=== PATIENT | female | born 1945 | race Caucasian/White ===

== ENCOUNTER 2018-02-05 10:20 | Inpatient (IN) | payer MEDICARE, BC ==
--- NOTE | 2018-02-05 11:00 | EDM.PDOC ---
<Joanne Chambers - Last Filed: 02/05/18 12:40> ED HPI GENERAL MEDICAL PROBLEM - General Chief Complaint: Lower Extremity Injury/Pain Stated Complaint: FELL/INJURIES Time Seen by Provider: 02/05/18 10:41 Source of Information: Reports: Patient History Limitations: Reports: No Limitations - History of Present Illness INITIAL COMMENTS - FREE TEXT/NARRATIVE: Stella is a 72-year-old woman with history of CVA, HTN, hypothyroidism, peripheral neuropathy, and renal failure s/p renal transplant who complains of right leg pain for the past 6 days. Seven days ago, she reports her knee "gave out" and she fell down three steps. The next day, she started having right throbbing lower leg pain, swelling, and redness. The pain is always present, worse with movement and better with a hot or cold pack. Stella denies fever/ chills,chest pain, shortness of breath, pain with breathing, neck/back injury, hip/knee/ankle pain, and alteration in sensation. She does take gabapentin for chronic nerve pain in her feet. Stella reports having had a stroke in ~2010, from which she has fully recovered. She states she was unable to talk or walk after her stroke. According to pt, no cause for the stroke was identified. She denies heart disease, valvular heart disease, peripheral vascular disease, coagulation disorder, or previous blood clots. She denies being a current smoker, and reports smoking about 55 years ago, for a total of about one year. She denies being on hormone replacement therapy. She does not drink alcohol. She takes 81mg ASA every day. Stella had a kidney transplant in 2014 due to bilateral renal failure. She is currently taking Cellcept and prednisone for anti-rejection therapy. Her workers' compensation hearings officer is Dr. Quigley. She has had her knees replaced bilaterally, with a left knee replacement in 2004 and a right knee replacement in May 2017. Onset: Gradual Duration: Day(s): (6) Location: Reports: Lower Extremity, Right Improves with: Reports: Cold Therapy, Heat Therapy, Immobilization, Rest Worsens with: Reports: Movement Treatments CLIPPING MARKER: Reports: Acetaminophen, Aspirin, Cold Therapy Right Lower Leg Pain Score (Numeric/FACES): 5 - Related Data Allergies Allergy/AdvReac Type Severity Reaction Status Date / Time adhesive tape Allergy Rash Verified 02/05/18 10:37 Home Meds: Home Meds Allopurinol [Zyloprim] 100 mg PO DAILY 02/05/18 [History] Gabapentin [Neurontin] 300 mg PO BID 02/05/18 [History] Levothyroxine [Synthroid] 50 mcg PO ACBREAKFAST 02/05/18 [History] Lidocaine [Lidocaine Pain Relief] 1 each TP DAILY 02/05/18 [History] Metoprolol Tartrate [Lopressor] 25 mg PO Q12HR 02/05/18 [History] Mycophenolate Mofetil [Cellcept] 500 mg PO BID 02/05/18 [History] atorvaSTATin [Lipitor] 20 mg PO BEDTIME 02/05/18 [History] cycloSPORINE [Cyclosporine] 75 mg PO BID 02/05/18 [History] predniSONE [Prednisone] 5 mg PO DAILY 02/05/18 [History] Review of Systems - Review of Systems Constitutional: Denies: Chills, Fever, Weakness Mouth/Throat: Reports: No Symptoms Respiratory: Denies: Shortness of Breath, Pleuritic Chest Pain, Cough Cardiovascular: Reports: Edema. Denies: Chest Pain, Lightheadedness, Palpitations GI/Abdominal: Reports: No Symptoms Musculoskeletal: Reports: Leg Pain (right leg, as per HPI) Skin: Reports: Erythema Neurological: Reports: No Symptoms. Denies: Numbness, Tingling ED EXAM, GENERAL - Physical Exam Free Text/Narrative:: Resting comfortably in bed. Oxygen saturation 97% on room air. Exam Limited By: No Limitations General Appearance: Alert, Mild Distress Throat/Mouth: Normal Inspection Head: Atraumatic Neck: Normal Inspection, Non-Tender, Full Range of Motion Respiratory/Chest: No Respiratory Distress, Normal Breath Sounds, Chest Non- Tender Cardiovascular: Normal Peripheral Pulses, Regular Rate, Rhythm, No Murmur Peripheral Pulses: 2+: Radial (L), Radial (R), Popliteal (L), Popliteal (R), Posterior Tibial (L), Posterior Tibial (R), Dorsalis Pedis (L), Dorsalis Pedis ( R) GI/Abdominal: Soft, Non-Tender Back Exam: Normal Inspection, Full Range of Motion. No: Paraspinal Tenderness, Vertebral Tenderness Extremities: Normal Range of Motion, Pedal Edema (3+ pitting pedal edema on dorsum of right foot. 2+ pitting edema of legs, bilaterally, with right greater than left. Circumference of right calf is approximately 50% greater than left calf. ), Increased Warmth, Redness, Other (right leg is swollen, erythematous, shiny, and tender circumferentially from mid-calf to ankle) Neurological: Alert, Oriented, Normal Cognition, No Motor/Sensory Deficits Psychiatric: Normal Affect, Normal Mood Skin Exam: Erythema, Increased Warmth, Rash (stasis dermatitis of right leg), Wound/Incision (small scab present on right anterior leg) Course - Vital Signs Last Recorded V/S: Last Vital Signs Temp 98.6 F 02/05/18 10:34 Pulse 63 02/05/18 10:34 Resp 16 02/05/18 10:34 BP 172/76 H 02/05/18 10:34 Pulse Ox 97 02/05/18 10:34 - Orders/Labs/Meds Orders: Active Orders 24 hr Category Date Time Status Tibia Fibula Rt [CR] Stat Exams 02/05/18 11:27 Taken Labs: Laboratory Tests 02/05/18 02/05/18 02/05/18 Range/Units 11:40 11:40 11:40 WBC 9.59 (3.98-10.04) K/mm3 RBC 3.77 L (3.98-5.22) M/mm3 Hgb 11.6 (11.2-15.7) gm/L Hct 37.4 (34.1-44.9) % MCV 99.2 H (79.4-94.8) fl MCH 30.8 (25.6-32.2) pg MCHC 31.0 L (32.2-35.5) g/dl RDW Std Deviation 51.9 H (36.4-46.3) fL Plt Count 242 (182-369) K/mm3 MPV 9.8 (9.4-12.3) fl Neutrophils % (Manual) 84 H (40-60) % Band Neutrophils % 0 (0-10) % Lymphocytes % (Manual) 14 L (20-40) % Atypical Lymphs % 0 % Monocytes % (Manual) 2 (2-10) % Eosinophils % (Manual) 0 L (0.7-5.8) % Basophils % (Manual) 0 L (0.1-1.2) Platelet Estimate Adequate RBC Morph Comment Normal Sodium 140 (136-145) mEq/L Potassium 5.2 H (3.5-5.1) mEq/L Chloride 108 H (98-107) mEq/L Carbon Dioxide 24 (21-32) mEq/L Anion Gap 13.2 (5-15) BUN 36 H (7-18) mg/dL Creatinine 1.2 H (0.55-1.02) mg/dL Est Cr Clr Drug Dosing 31.04 mL/min Estimated GFR (MDRD) 44 (>60) mL/min BUN/Creatinine Ratio 30.0 H (14-18) Glucose 135 H (83-115) mg/dL Calcium 10.6 H (8.5-10.1) mg/dL Total Bilirubin 1.0 (0.2-1.0) mg/dL AST 29 (15-37) U/L ALT 41 (14-59) U/L Alkaline Phosphatase 157 H (46-116) U/L C-Reactive Protein 4.9 H* (<1.0) mg/dL Total Protein 7.1 (6.4-8.2) g/dl Albumin 3.1 L (3.4-5.0) g/dl Globulin 4.0 gm/dL Albumin/Globulin Ratio 0.8 L (1-2) Meds: Medications Discontinued Medications Generic Name Dose Route Start Last Admin Trade Name Suman PRN Reason Stop Dose Admin Ceftriaxone Sodium 1 gm/ 100 mls @ 200 mls/hr 02/05/18 15:31 02/05/18 15:49 Sodium Chloride IV 02/05/18 16:00 200 mls/hr ONETIME ONE Administration Departure - Departure Disposition: Refer to Observation Clinical Impression: Cellulitis Qualifiers: Site of cellulitis: extremity Site of cellulitis of extremity: lower extremity Laterality: right Qualified Code(s): L03.115 - Cellulitis of right lower limb - Discharge Information - My Orders Last 24 Hours: My Active Orders 02/05/18 11:27 Tibia Fibula Rt [CR] Stat - Assessment/Plan Last 24 Hours: My Active Orders 02/05/18 11:27 Tibia Fibula Rt [CR] Stat <Brian Addison L - Last Filed: 02/05/18 19:03> Review of Systems - Review of Systems Review Of Systems: See Below Ears: Denies: Dizziness Nose: Reports: No Symptoms Musculoskeletal: Denies: Neck Pain, Shoulder Pain, Back Pain ED EXAM, GENERAL - Physical Exam Exam: See Below Nose: Normal Inspection Respiratory/Chest: Lungs Clear GI/Abdominal: No: Guarding Skin Exam: Warm, Dry Course - Orders/Labs/Meds Meds: Medications Discontinued Medications Generic Name Dose Route Start Last Admin Trade Name Suman PRN Reason Stop Dose Admin Ceftriaxone Sodium 1 gm/ 100 mls @ 200 mls/hr 02/05/18 15:31 02/05/18 15:49 Sodium Chloride IV 02/05/18 16:00 200 mls/hr ONETIME ONE Administration - Re-Assessments/Exams Free Text/Narrative Re-Assessment/Exam: 02/05/18 15:05. Initial hx and exam was done by Joanne Fernandez, 4th year medical student. I agree with her hx and exam as documented. I have also interviewed and examined patient. White blood count is normal, C-reactive protein . X-rays of leg are negative for fracture as expected. Ultrasound of leg does not show deep venous thrombosis. Therefore her swelling warmth and inflammation of leg is due to cellulitis. Rocephin 1 g IV has been ordered. With the extent of infection of the leg and considering that she is on immunosuppressant therapy status post kidney transplant I am going to work toward getting her admitted for initial IV therapy until symptoms resolving. Departure - Departure Time of Disposition: 15:41 Condition: Serious ED Communication - Discussed Case With (1) Discussed Case With (1): Admitting Provider (Dr Fabian, decision to admit at about 15:00)
--- NOTE | 2018-02-05 13:59 | US ---
Right lower extremity deep venous ultrasound: Duplex and color flow imaging was obtained of the right common femoral, proximal greater saphenous, superficial femoral, popliteal, posterior tibial and peroneal veins. Left common femoral vein was also evaluated. Findings: Duplicated veins noted within the thigh. Normal phasic flow, augmentation and compression is seen. Impression: 1. No evidence of venous thrombosis within right lower extremity or within the left common femoral vein. Diagnostic code #1
[2018-02-05] MEDS ORDERED: cefTRIAXone 1 GM in Sodium Chloride 0.9% 100 ML IV ONE ×2 (15:31→20:45)
[2018-02-05] MEDS ORDERED: cefTRIAXone 2 GM in Sodium Chloride 0.9% 100 ML IV SCH (20:00)
[2018-02-05] MEDS ORDERED: cefTRIAXone 2 GM Vial IVPUSH SCH (20:30)
[2018-02-05] MEDS ORDERED: Ondansetron 4 MG/2 ML SDV IV PRN (20:44)
[2018-02-05] MEDS ORDERED: Albuterol 0.083% 2.5 MG/3 ML Neb Soln NEB PRN (20:44)
[2018-02-05] MEDS ORDERED: Magnesium Hydroxide 400 MG/5 ML Susp 30 ML Cup PO PRN (20:44)
[2018-02-05] MEDS ORDERED: Bisacodyl 5 MG Tab PO PRN (20:44)
[2018-02-05] MEDS ORDERED: Acetaminophen/oxyCODONE 325-5 MG Tab PO PRN (20:44)
[2018-02-05] MEDS ORDERED: Acetaminophen 325 MG Tab PO PRN (20:44)
[2018-02-05] MEDS ORDERED: Polyethylene Glycol 3350 Powder 17 GM Packet PO PRN (20:44)
[2018-02-05] MEDS ORDERED: Ondansetron 4 MG Tab.DIS PO PRN (20:44)
[2018-02-05] MEDS ORDERED: HYDROmorphone 0.5 MG/0.5 ML Syringe IVPUSH PRN (20:44)
[2018-02-05] MEDS ORDERED: Docusate Sodium 100 MG Cap PO PRN (20:44)
[2018-02-05] MEDS ORDERED: Albuterol/Ipratropium 3.0-0.5 MG/3 ML Neb Soln NEB PRN (20:44)
[2018-02-05] MEDS ORDERED: Temazepam 7.5 MG Cap PO PRN (20:44)
[2018-02-05] MEDS ORDERED: Sodium Chloride 0.9% 1,000 ML IV SCH (20:45)
--- NOTE | 2018-02-05 20:50 | PCM.HP ---
<Saniya Hinton - Last Filed: 02/05/18 21:28> H&P History of Present Illness - General Date of Service: 02/05/18 Admit Problem/Dx: Admission Diagnosis/Problem Admission Diagnosis/Problem Cellulitis Source of Information: Patient, Provider History Limitations: Reports: No Limitations - History of Present Illness Initial Comments - Free Text/Narative: HPI: This is a 72 yo female with past medical hx/o CVA, HTN, hypothyroidism, peripheral neuropathy, h/o bilateral knee replacement, and renal failure s/p renal transplant who comes in for right leg cellulitis s/p fall. Pain is controlled. She reports no fever, chills, nausea, vomiting, diarrhea, dizziness , changes in vision, headache. Her initial workup in the ED showed a CBC remarkable for RBC 3.77, MCV 99.2, MCHC 31, RDW 51.9, Neut 84%, Lymph 14%. Her chemistry is remarkable for K 5.2, Cl 108, BUN 36, Cr 1.2, Glu 135, Ca 10.6, Alk Phos 157, CRP 4.9, Albumin 3.1. Venous Duplex U/S of right leg negative for DVT. Tib/Fib XR pending formal read , ED read is negative for fracture. She is subsequently admitted to the medical floor. She is a full code. Her PCP is Dr. Quigley. Right Lower Leg Pain Score (Numeric/FACES): 5 - Related Data Allergies/Adverse Reactions: Allergies Allergy/AdvReac Type Severity Reaction Status Date / Time adhesive tape Allergy Rash Verified 02/05/18 10:37 Home Medications: Home Meds Allopurinol [Zyloprim] 100 mg PO DAILY 02/05/18 [History] Gabapentin [Neurontin] 300 mg PO BID 02/05/18 [History] Levothyroxine [Synthroid] 50 mcg PO ACBREAKFAST 02/05/18 [History] Lidocaine [Lidocaine Pain Relief] 1 each TP DAILY 02/05/18 [History] Metoprolol Tartrate [Lopressor] 25 mg PO Q12HR 02/05/18 [History] Mycophenolate Mofetil [Cellcept] 500 mg PO BID 02/05/18 [History] atorvaSTATin [Lipitor] 20 mg PO BEDTIME 02/05/18 [History] cycloSPORINE [Cyclosporine] 75 mg PO BID 02/05/18 [History] predniSONE [Prednisone] 5 mg PO DAILY 02/05/18 [History] Past Medical History Cardiovascular History: Reports: High Cholesterol, Hypertension Neurological History: Reports: CVA Endocrine/Metabolic History: Reports: Hypothyroidism - Past Surgical History HEENT Surgical History: Reports: Cataract Surgery, Tonsillectomy GI Surgical History: Reports: Appendectomy, Colonoscopy Female Surgical History: Reports: Hysterectomy, Other (See Below) Other Female Surgeries/Procedures: kidney transplant Musculoskeletal Surgical History: Reports: Carpal Tunnel, Knee Replacement Social & Family History - Tobacco Use Smoking Status *Q: Never Smoker - Caffeine Use Caffeine Use: Reports: Coffee - Recreational Drug Use Recreational Drug Use: No H&P Review of Systems - Review of Systems: Review Of Systems: See Below General: Reports: No Symptoms. Denies: Fever, Chills, Weakness, Fatigue HEENT: Reports: Glasses Pulmonary: Reports: No Symptoms. Denies: Shortness of Breath, Wheezing, Cough Cardiovascular: Reports: Blood Pressure Problem. Denies: Chest Pain Gastrointestinal: Reports: No Symptoms. Denies: Abdominal Pain, Diarrhea, Nausea, Vomiting Genitourinary: Reports: No Symptoms. Denies: Dysuria, Frequency, Burning, Pain , Urgency Musculoskeletal: Reports: No Symptoms Skin: Reports: Bruising (right upper extremity has some bruising from a dog scratching her arm; there is a healed scar from the laceration), Erythema (with increased warmth in right lower extremity) Psychiatric: Reports: No Symptoms Neurological: Reports: No Symptoms Hematologic/Lymphatic: Reports: Easy Bruising Immunologic: Reports: No Symptoms Exam - Exam Exam: See Below - Vital Signs Vital Signs: Last Vital Signs Temp 98.6 F 02/05/18 10:34 Pulse 63 02/05/18 10:34 Resp 16 02/05/18 10:34 BP 172/76 H 02/05/18 10:34 Pulse Ox 97 02/05/18 10:34 Weight: 97.522 kg - Exam Quality Assessment: DVT Prophylaxis. No: Supplemental Oxygen General: Alert, Oriented, Cooperative, Mild Distress HEENT: PERRLA, Hearing Intact, Mucosa Moist & [place], Nares Patent, Normal Nasal Septum, Posterior Pharynx Clear, Conjunctiva Clear, EOMI, EACs Clear, TMs Clear Neck: Supple, Trachea Midline, 2 Lungs: Clear to Auscultation, Normal Respiratory Effort Cardiovascular: Regular Rate, Regular Rhythm GI/Abdominal Exam: Normal Bowel Sounds, Soft, Non-Tender, No Organomegaly, No Distention, No Abnormal Bruit, No Mass, Pelvis Stable (Female) Exam: Deferred Rectal (Female) Exam: Deferred Back Exam: Normal Inspection, Full Range of Motion, NT Extremities: Normal Range of Motion, No Pedal Edema, Slow Capillary Refill ( right lower extremity d/t swelling), Increased Warmth (right lower extremity), Redness (right lower extremity). No: Leg Pain Peripheral Pulses: 2+: Posterior Tibial (L), Posterior Tibial (R), Dorsalis Pedis (L), Dorsalis Pedis (R) Skin: Warm, Dry, Intact, Wound (erythema and increased wamrth to the right lower extremity s/p fall), Other (bruising to right arm after dog scratched her ; there is a healed scar from the laceration) Neurological: Cranial Nerves Intact (grossly), Strength Equal Bilateral, Sensation Intact (has some tingling per pt, but no numbness), Abnormal Gait ( uses walker; h/o bilateral knee replacements and possible need for right hip replacement per pt) Neuro Extensive - Mental Status: Alert, Oriented x3, Normal Mood/Affect, Normal Cognition Psychiatric: Alert, Normal Affect, Normal Mood - Patient Data Lab Results Last 24 hrs: Laboratory Results - last 24 hr 02/05/18 02/05/18 02/05/18 Range/Units 11:40 11:40 11:40 WBC 9.59 (3.98-10.04) K/mm3 RBC 3.77 L (3.98-5.22) M/mm3 Hgb 11.6 (11.2-15.7) gm/L Hct 37.4 (34.1-44.9) % MCV 99.2 H (79.4-94.8) fl MCH 30.8 (25.6-32.2) pg MCHC 31.0 L (32.2-35.5) g/dl RDW Std Deviation 51.9 H (36.4-46.3) fL Plt Count 242 (182-369) K/mm3 MPV 9.8 (9.4-12.3) fl Neutrophils % (Manual) 84 H (40-60) % Band Neutrophils % 0 (0-10) % Lymphocytes % (Manual) 14 L (20-40) % Atypical Lymphs % 0 % Monocytes % (Manual) 2 (2-10) % Eosinophils % (Manual) 0 L (0.7-5.8) % Basophils % (Manual) 0 L (0.1-1.2) Platelet Estimate Adequate RBC Morph Comment Normal Sodium 140 (136-145) mEq/L Potassium 5.2 H (3.5-5.1) mEq/L Chloride 108 H (98-107) mEq/L Carbon Dioxide 24 (21-32) mEq/L Anion Gap 13.2 (5-15) BUN 36 H (7-18) mg/dL Creatinine 1.2 H (0.55-1.02) mg/dL Est Cr Clr Drug Dosing 31.04 mL/min Estimated GFR (MDRD) 44 (>60) mL/min BUN/Creatinine Ratio 30.0 H (14-18) Glucose 135 H (83-115) mg/dL Lactic Acid (0.4-2.0) mmol/L Calcium 10.6 H (8.5-10.1) mg/dL Total Bilirubin 1.0 (0.2-1.0) mg/dL AST 29 (15-37) U/L ALT 41 (14-59) U/L Alkaline Phosphatase 157 H (46-116) U/L C-Reactive Protein 4.9 H* (<1.0) mg/dL Total Protein 7.1 (6.4-8.2) g/dl Albumin 3.1 L (3.4-5.0) g/dl Globulin 4.0 gm/dL Albumin/Globulin Ratio 0.8 L (1-2) 02/05/18 Range/Units 19:28 WBC (3.98-10.04) K/mm3 RBC (3.98-5.22) M/mm3 Hgb (11.2-15.7) gm/L Hct (34.1-44.9) % MCV (79.4-94.8) fl MCH (25.6-32.2) pg MCHC (32.2-35.5) g/dl RDW Std Deviation (36.4-46.3) fL Plt Count (182-369) K/mm3 MPV (9.4-12.3) fl Neutrophils % (Manual) (40-60) % Band Neutrophils % (0-10) % Lymphocytes % (Manual) (20-40) % Atypical Lymphs % % Monocytes % (Manual) (2-10) % Eosinophils % (Manual) (0.7-5.8) % Basophils % (Manual) (0.1-1.2) Platelet Estimate RBC Morph Comment Sodium (136-145) mEq/L Potassium (3.5-5.1) mEq/L Chloride (98-107) mEq/L Carbon Dioxide (21-32) mEq/L Anion Gap (5-15) BUN (7-18) mg/dL Creatinine (0.55-1.02) mg/dL Est Cr Clr Drug Dosing mL/min Estimated GFR (MDRD) (>60) mL/min BUN/Creatinine Ratio (14-18) Glucose (83-115) mg/dL Lactic Acid 2.0 (0.4-2.0) mmol/L Calcium (8.5-10.1) mg/dL Total Bilirubin (0.2-1.0) mg/dL AST (15-37) U/L ALT (14-59) U/L Alkaline Phosphatase (46-116) U/L C-Reactive Protein (<1.0) mg/dL Total Protein (6.4-8.2) g/dl Albumin (3.4-5.0) g/dl Globulin gm/dL Albumin/Globulin Ratio (1-2) Result Diagrams: 02/05/18 11:40 02/05/18 11:40 - Problem List (1) Cellulitis SNOMED Code(s): 843108586 ICD Code: L03.90 - CELLULITIS, UNSPECIFIED Status: Acute Current Visit: Yes Qualifiers: Site of cellulitis: extremity Site of cellulitis of extremity: lower extremity Laterality: right Qualified Code(s): L03.115 - Cellulitis of right lower limb Problem List Initiated/Reviewed/Updated: Yes Orders Last 24hrs: Active Orders 24 hr Category Date Time Status Admission Status [Patient Status] [ADT] Routine ADT 02/05/18 18:23 Active Cardiac Monitoring [RC] INTERMITTENT Care 02/05/18 20:45 Active Height and Weight [RC] DAILY Care 02/05/18 20:44 Active Intake and Output [RC] QSHIFT Care 02/05/18 20:45 Active May Shower [RC] ASDIRECTED Care 02/05/18 20:44 Active Oxygen Therapy [RC] PRN Care 02/05/18 20:45 Active Pulse Oximetry [RC] PRN Care 02/05/18 20:45 Active RT Aerosol Therapy [RC] ASDIRECTED Care 02/05/18 20:46 Active Up With Assistance [RC] ASDIRECTED Care 02/05/18 20:44 Active VTE/DVT Education [RC] PER UNIT ROUTINE Care 02/05/18 20:45 Active Vital Signs [RC] Q4H Care 02/05/18 20:45 Active OT Evaluation and Treatment [CONS] Routine Cons 02/05/18 20:44 Active PT Evaluation and Treatment [CONS] Routine Cons 02/05/18 20:44 Active Heart Healthy Diet [DIET] Diet 02/06/18 Breakfast Active Tibia Fibula Rt [CR] Stat Exams 02/05/18 11:27 Taken BASIC METABOLIC PANEL,BMP [CHEM] AM Lab 02/06/18 05:11 Ordered BASIC METABOLIC PANEL,BMP [CHEM] AM Lab 02/07/18 05:11 Ordered BASIC METABOLIC PANEL,BMP [CHEM] AM Lab 02/08/18 05:11 Ordered BASIC METABOLIC PANEL,BMP [CHEM] AM Lab 02/09/18 05:11 Ordered BASIC METABOLIC PANEL,BMP [CHEM] AM Lab 02/10/18 05:11 Ordered C-REACTIVE PROTEIN [CHEM] AM Lab 02/06/18 05:11 Ordered C-REACTIVE PROTEIN [CHEM] AM Lab 02/07/18 05:11 Ordered C-REACTIVE PROTEIN [CHEM] AM Lab 02/08/18 05:11 Ordered C-REACTIVE PROTEIN [CHEM] AM Lab 02/09/18 05:11 Ordered C-REACTIVE PROTEIN [CHEM] AM Lab 02/10/18 05:11 Ordered CBC WITH AUTO DIFF [HEME] AM Lab 02/06/18 05:11 Ordered CBC WITH AUTO DIFF [HEME] AM Lab 02/07/18 05:11 Ordered CBC WITH AUTO DIFF [HEME] AM Lab 02/08/18 05:11 Ordered CBC WITH AUTO DIFF [HEME] AM Lab 02/09/18 05:11 Ordered CBC WITH AUTO DIFF [HEME] AM Lab 02/10/18 05:11 Ordered CULTURE BLOOD [BC] Stat Lab 02/05/18 19:08 Ordered CULTURE BLOOD [BC] Stat Lab 02/05/18 19:28 Received MAGNESIUM [CHEM] AM Lab 02/06/18 05:11 Ordered MAGNESIUM [CHEM] AM Lab 02/07/18 05:11 Ordered MAGNESIUM [CHEM] AM Lab 02/08/18 05:11 Ordered MAGNESIUM [CHEM] AM Lab 02/09/18 05:11 Ordered MAGNESIUM [CHEM] AM Lab 02/10/18 05:11 Ordered Acetaminophen [Tylenol] Med 02/05/18 20:44 Ordered 650 mg PO Q4H PRN Acetaminophen/oxyCODONE [Percocet 325-5 MG] Med 02/05/18 20:44 Ordered 1 tab PO Q4H PRN Albuterol [Proventil Neb Soln] Med 02/05/18 20:44 Ordered 2.5 mg NEB Q2H PRN Albuterol/Ipratropium [DuoNeb 3.0-0.5 MG/3 ML] Med 02/05/18 20:44 Ordered 3 ml NEB Q4H PRN Allopurinol [Zyloprim] Med 02/06/18 09:00 Ordered 100 mg PO DAILY Bisacodyl [Dulcolax] Med 02/05/18 20:44 Ordered 5 mg PO DAILY PRN Docusate Sodium [Colace] Med 02/05/18 20:44 Ordered 100 mg PO BID PRN Docusate Sodium/Sennosides [Senna Plus] Med 02/05/18 20:44 Ordered 1 tab PO BID PRN Gabapentin [Neurontin] Med 02/05/18 21:00 Ordered 300 mg PO BID HYDROmorphone [Dilaudid] Med 02/05/18 20:44 Ordered 0.25 mg IVPUSH Q2H PRN Heparin Sodium Med 02/05/18 20:45 Ordered 5,000 units SUBCUT Q8H Levothyroxine [Synthroid] Med 02/06/18 06:00 Ordered 50 mcg PO ACBREAKFAST Lidocaine [Lidocaine Pain Relief] Med 02/06/18 09:00 Ordered 1 each TP DAILY Magnesium Hydroxide [Milk of Magnesia] Med 02/05/18 20:44 Ordered 30 ml PO Q12H PRN Metoprolol Tartrate [Lopressor] Med 02/05/18 21:00 Ordered 25 mg PO Q12HR Mycophenolate Mofetil Med 02/05/18 21:00 Ordered 500 mg PO BID Ondansetron [Zofran ODT] Med 02/05/18 20:44 Ordered 4 mg PO Q4H PRN Ondansetron [Zofran] Med 02/05/18 20:44 Ordered 4 mg IV Q4H PRN Polyethylene Glycol 3350 [MiraLAX] Med 02/05/18 20:44 Ordered 17 gm PO DAILY PRN Sodium Chloride 0.9% [Normal Saline] 1,000 ml Med 02/05/18 20:45 Ordered IV ASDIRECTED Temazepam [Restoril] Med 02/05/18 20:44 Ordered 7.5 mg PO BEDTIME PRN Vancomycin 1 gm Med 02/05/18 21:00 Active Vancomycin 250 mg Sodium Chloride 0.9% [Normal Saline] 250 ml IV Q24H Vancomycin Pharmacy to Dose [Pharmacy to Dose - Med 02/05/18 20:30 Pending Vancomycin] 1 dose .XX ASDIRECTED atorvaSTATin Med 02/05/18 21:00 Ordered 20 mg PO BEDTIME cefTRIAXone [Rocephin] 1 gm Med 02/05/18 20:45 Active Sodium Chloride 0.9% [Normal Saline] 100 ml IV ONETIME cefTRIAXone [Rocephin] 2 gm Med 02/06/18 20:00 Active Sodium Chloride 0.9% [Normal Saline] 100 ml IV Q24H cycloSPORINE Med 02/05/18 21:00 Ordered 75 mg PO BID predniSONE Med 02/06/18 09:00 Ordered 5 mg PO DAILY Blood Culture x2 Reflex Set [OM.PC] Stat Oth 02/05/18 19:08 Ordered Resuscitation Status Routine Resus Stat 02/05/18 19:54 Ordered Medication Orders Acetaminophen (Tylenol) 650 mg PO Q4H PRN PRN Reason: Pain (Mild 1-3)/fever Albuterol (Proventil Neb Soln) 2.5 mg NEB Q2H PRN PRN Reason: Shortness Of Breath/wheezing Albuterol/Ipratropium (Duoneb 3.0-0.5 Mg/3 Ml) 3 ml NEB Q4H PRN PRN Reason: Shortness Of Breath/wheezing Allopurinol (Zyloprim) 100 mg PO DAILY KARIN Bisacodyl (Dulcolax) 5 mg PO DAILY PRN PRN Reason: Constipation Docusate Sodium (Colace) 100 mg PO BID PRN PRN Reason: Constipation Gabapentin (Neurontin) 300 mg PO BID KARIN Heparin Sodium (Porcine) (Heparin Sodium) 5,000 units SUBCUT Q8H [facility] Hydromorphone HCl (Dilaudid) 0.25 mg IVPUSH Q2H PRN PRN Reason: Pain (severe 7-10) Ceftriaxone Sodium 1 gm/ (Sodium Chloride) 100 mls @ 200 mls/hr IV ONETIME ONE Stop: 02/05/18 21:14 Ceftriaxone Sodium 2 gm/ (Sodium Chloride) 100 mls @ 100 mls/hr IV Q24H KARIN Vancomycin HCl 1 gm/Vancomycin HCl 250 mg/ Sodium Chloride 250 mls @ 250 mls/ hr IV Q24H KARIN Sodium Chloride (Normal Saline) 1,000 mls @ 125 mls/hr IV ASDIRECTED [facility] Stop: 02/06/18 02:46 Levothyroxine Sodium (Synthroid) 50 mcg PO ACBREAKFAST [facility] Magnesium Hydroxide (Milk Of Magnesia) 30 ml PO Q12H PRN PRN Reason: Constipation Metoprolol Tartrate (Lopressor) 25 mg PO Q12HR [facility] Non-Formulary Medication (Atorvastatin) 20 mg PO BEDTIME [facility] Non-Formulary Medication (Cyclosporine) 75 mg PO BID [facility] Non-Formulary Medication (Lidocaine [Lidocaine Pain Relief]) 1 each TP DAILY [facility] Non-Formulary Medication (Mycophenolate Mofetil) 500 mg PO BID [facility] Ondansetron HCl (Zofran Odt) 4 mg PO Q4H PRN PRN Reason: nausea, able to take PO Ondansetron HCl (Zofran) 4 mg IV Q4H PRN PRN Reason: Nausea/Vomiting Oxycodone/Acetaminophen (Percocet 325-5 Mg) 1 tab PO Q4H PRN PRN Reason: Pain (moderate 4-6) Polyethylene Glycol (Miralax) 17 gm PO DAILY PRN PRN Reason: Constipation Prednisone (Prednisone) 5 mg PO DAILY [facility] Senna/Docusate Sodium (Senna Plus) 1 tab PO BID PRN PRN Reason: Constipation Temazepam (Restoril) 7.5 mg PO BEDTIME PRN PRN Reason: Sleep Vancomycin HCl (Pharmacy To Dose - Vancomycin) 1 dose .XX ASDIRECTED [facility] Assessment/Plan Comment:: I/P: Acute: Right lower leg cellulitis s/p fall * She reports her knee "gave out" 1 week ago and she fell down three steps; usually uses walker but at the time was using hand rails * Risk factors: bilateral knee replacements (states she may also need right hip replacement), unsteady gait with walker, h/o peripheral neuropathy * Denies dizziness, LOC, F/C, N/V/D * She thought it was "just a bruise" but then pain, swelling and redness increased * No leukocytosis, Lactic Acid WNL * CRP elevated 4.9 * Blood cultures pending * MRSA by PCR screen pending (no active wound to culture) * ED was asked to call life skills educator to confirm type of antibiotic she can handle d/t renal transplant: * Recommendation was not documented, but was reportedly 3rd generation Cephalosporin and Vancomycin * Start Rocephin and Vancomycin * PT/OT consult for evaluation of knee weakness/unsteadiness * IVF PRN Chronic: h/o CVA (2010)--> states she has no residual symptoms HTN Hypothyroidism Peripheral neuropathy h/o bilateral knee replacement (L knee 2004, R knee 05/2017) Renal failure s/p renal transplant (2014) * continue at-home immunosuppressant medications * reverse isolation not needed at this time, WBC/Neut WNL Plan: Admitted to Medical Floor She remains stable Other orders as indicated above Routine AM labs Renal Diet/Heart Healthy Diet CM/SW for discharge planning DVT Prophylaxis: Heparin GI Prophylaxis: Pepcid Code Status: Full Code; PCP: Dr. Quigley <Gaye Fabian - Last Filed: 02/07/18 15:15> H&P History of Present Illness - General Admit Problem/Dx: Admission Diagnosis/Problem Admission Diagnosis/Problem Cellulitis Exam - Vital Signs Vital Signs: Last Vital Signs Temp 36.9 C 02/07/18 07:44 Pulse 60 02/07/18 08:32 Resp 16 02/07/18 07:44 BP 136/92 H 02/07/18 08:32 Pulse Ox 94 L 02/07/18 07:44 - Patient Data Lab Results Last 24 hrs: Laboratory Results - last 24 hr 02/07/18 02/07/18 02/07/18 Range/Units 05:55 05:55 05:55 WBC 7.59 (3.98-10.04) K/mm3 RBC 3.72 L (3.98-5.22) M/mm3 Hgb 11.5 (11.2-15.7) gm/L Hct 36.9 (34.1-44.9) % MCV 99.2 H (79.4-94.8) fl MCH 30.9 (25.6-32.2) pg MCHC 31.2 L (32.2-35.5) g/dl RDW Std Deviation 51.9 H (36.4-46.3) fL Plt Count 262 (182-369) K/mm3 MPV 10.1 (9.4-12.3) fl Neut % (Auto) 84.8 H (34.0-71.1) % Lymph % (Auto) 11.2 L (19.3-51.7) % Foster % (Auto) 1.3 L (4.7-12.5) % Eos % (Auto) 0.1 L (0.7-5.8) Baso % (Auto) 0.1 (0.1-1.2) % Neut # (Auto) 6.43 H (1.56-6.13) K/mm3 Lymph # (Auto) 0.85 L (1.18-3.74) K/mm3 Foster # (Auto) 0.10 L (0.24-0.36) K/mm3 Eos # (Auto) 0.01 L (0.04-0.36) K/mm3 Baso # (Auto) 0.01 (0.01-0.08) K/mm3 Manual Slide Review Abnormal smear Sodium 140 (136-145) mEq/L Potassium 5.3 H (3.5-5.1) mEq/L Chloride 109 H (98-107) mEq/L Carbon Dioxide 23 (21-32) mEq/L Anion Gap 13.3 (5-15) BUN 31 H (7-18) mg/dL Creatinine 1.4 H (0.55-1.02) mg/dL Est Cr Clr Drug Dosing 30.44 mL/min Estimated GFR (MDRD) 37 (>60) mL/min BUN/Creatinine Ratio 22.1 H (14-18) Glucose 233 H (83-115) mg/dL Lactic Acid 1.9 (0.4-2.0) mmol/L Calcium 10.0 (8.5-10.1) mg/dL Magnesium 2.1 (1.8-2.4) mg/dl C-Reactive Protein 3.1 H* (<1.0) mg/dL Result Diagrams: 02/07/18 05:55 02/07/18 05:55 Bebeto Results Last 24 hrs: Microbiology 02/05/18 20:00 Aerobic Blood Culture - Preliminary Blood - Venous - Lab Draw NO GROWTH AFTER 1 DAY Anaerobic Blood Culture - Preliminary NO GROWTH AFTER 1 DAY 02/05/18 19:28 Aerobic Blood Culture - Preliminary Blood - Venous NO GROWTH AFTER 1 DAY Anaerobic Blood Culture - Preliminary NO GROWTH AFTER 1 DAY Orders Last 24hrs: Active Orders 24 hr Category Date Time Status Charles Bandage [RC] ROUTINE Care 02/07/18 10:55 Active BASIC METABOLIC PANEL,BMP [CHEM] AM Lab 02/08/18 05:11 Ordered BASIC METABOLIC PANEL,BMP [CHEM] AM Lab 02/09/18 05:11 Ordered BASIC METABOLIC PANEL,BMP [CHEM] AM Lab 02/10/18 05:11 Ordered C-REACTIVE PROTEIN [CHEM] AM Lab 02/08/18 05:11 Ordered C-REACTIVE PROTEIN [CHEM] AM Lab 02/09/18 05:11 Ordered C-REACTIVE PROTEIN [CHEM] AM Lab 02/10/18 05:11 Ordered CBC WITH AUTO DIFF [HEME] AM Lab 02/08/18 05:11 Ordered CBC WITH AUTO DIFF [HEME] AM Lab 02/09/18 05:11 Ordered CBC WITH AUTO DIFF [HEME] AM Lab 02/10/18 05:11 Ordered LACTIC ACID [CHEM] AM Lab 02/08/18 05:11 Ordered LACTIC ACID [CHEM] AM Lab 02/09/18 05:11 Ordered LACTIC ACID [CHEM] AM Lab 02/10/18 05:11 Ordered MAGNESIUM [CHEM] AM Lab 02/08/18 05:11 Ordered MAGNESIUM [CHEM] AM Lab 02/09/18 05:11 Ordered MAGNESIUM [CHEM] AM Lab 02/10/18 05:11 Ordered VANCOMYCIN TROUGH [CHEM] Timed Lab 02/07/18 20:30 Ordered Remove Patch Med 02/06/18 20:00 Active 1 ea TRDERM Q24H cefTRIAXone [Rocephin] 2 gm Med 02/06/18 20:00 Active Sodium Chloride 0.9% [Normal Saline] 100 ml IV Q24H methylPREDNISolone Sod Succ [Solu-MEDROL] Med 02/06/18 20:00 Active 40 mg IVPUSH Q12H CHARLES Bandage [Elastic Wrap] [OM.PC] Routine Ot 02/07/18 10:55 Ordered CECI Hose [Antiembolic Hose] [OM.PC] Routine Ot 02/06/18 19:31 Ordered Medication Orders Acetaminophen (Tylenol) 650 mg PO Q4H PRN PRN Reason: Pain (Mild 1-3)/fever Albuterol (Proventil Neb Soln) 2.5 mg NEB Q2H PRN PRN Reason: Shortness Of Breath/wheezing Albuterol/Ipratropium (Duoneb 3.0-0.5 Mg/3 Ml) 3 ml NEB Q4H PRN PRN Reason: Shortness Of Breath/wheezing Allopurinol (Zyloprim) 100 mg PO DAILY [facility] Last Admin: 02/07/18 08:32 Dose: 100 mg Admin: 02/06/18 07:59 Dose: 100 mg Bisacodyl (Dulcolax) 5 mg PO DAILY PRN PRN Reason: Constipation Cyclosporine (Modified) (Neoral) 75 mg PO BID [facility] Last Admin: 02/07/18 08:41 Dose: 75 mg Admin: 02/06/18 20:48 Dose: 75 mg Admin: 02/06/18 08:00 Dose: 75 mg Admin: 02/05/18 21:45 Dose: Docusate Sodium (Colace) 100 mg PO BID PRN PRN Reason: Constipation Famotidine (Pepcid) 20 mg PO DAILY [facility] Last Admin: 02/07/18 08:32 Dose: 20 mg Admin: 02/06/18 07:59 Dose: 20 mg Gabapentin (Neurontin) 300 mg PO BID [facility] Last Admin: 02/07/18 08:32 Dose: 300 mg Admin: 02/06/18 20:47 Dose: 300 mg Admin: 02/06/18 07:59 Dose: 300 mg Admin: 02/05/18 21:43 Dose: 300 mg Heparin Sodium (Porcine) (Heparin Sodium) 5,000 units SUBCUT Q8H [facility] Last Admin: 02/07/18 13:09 Dose: Not Given Admin: 02/07/18 04:36 Dose: Not Given Admin: 02/06/18 20:50 Dose: Not Given Admin: 02/06/18 11:14 Dose: Not Given Admin: 02/06/18 04:05 Dose: Not Given Admin: 02/05/18 21:42 Dose: Not Given Hydromorphone HCl (Dilaudid) 0.25 mg IVPUSH Q2H PRN PRN Reason: Pain (severe 7-10) Ceftriaxone Sodium 2 gm/ (Sodium Chloride) 100 mls @ 100 mls/hr IV Q24H [facility] Last Admin: 02/06/18 20:39 Dose: 100 mls/hr Vancomycin HCl 1 gm/Vancomycin HCl 250 mg/ Sodium Chloride 250 mls @ 250 mls/ hr IV Q24H [facility] Last Admin: 02/06/18 22:44 Dose: 250 mls/hr Infusion: 02/05/18 22:45 Dose: 250 mls/hr Admin: 02/05/18 21:45 Dose: 250 mls/hr Levothyroxine Sodium (Synthroid) 50 mcg PO ACBREAKFAST [facility] Last Admin: 02/07/18 06:17 Dose: 50 mcg Admin: 02/06/18 06:07 Dose: 50 mcg Lidocaine (Lidoderm 5%) 700 mg TOP DAILY [facility] Last Admin: 02/07/18 08:33 Dose: Not Given Admin: 02/06/18 07:59 Dose: 700 mg Magnesium Hydroxide (Milk Of Magnesia) 30 ml PO Q12H PRN PRN Reason: Constipation Methylprednisolone Sodium Succinate (Solu-Medrol) 40 mg IVPUSH Q12H [facility] Last Admin: 02/07/18 08:32 Dose: 40 mg Admin: 02/06/18 20:44 Dose: 40 mg Metoprolol Tartrate (Lopressor) 25 mg PO Q12HR [facility] Last Admin: 02/07/18 08:32 Dose: 25 mg Admin: 02/06/18 20:44 Dose: 25 mg Admin: 02/06/18 07:59 Dose: 25 mg Admin: 02/05/18 21:43 Dose: 25 mg Miscellaneous Information (Remove Patch) 1 ea TRDERM Q24H [facility] Last Admin: 02/06/18 20:50 Dose: Mycophenolate Mofetil (Cellcept) 500 mg PO BID [facility] Last Admin: 02/07/18 08:40 Dose: 500 mg Admin: 02/06/18 20:49 Dose: 500 mg Admin: 02/06/18 08:01 Dose: 500 mg Admin: 02/05/18 21:44 Dose: Ondansetron HCl (Zofran Odt) 4 mg PO Q4H PRN PRN Reason: nausea, able to take PO Ondansetron HCl (Zofran) 4 mg IV Q4H PRN PRN Reason: Nausea/Vomiting Oxycodone/Acetaminophen (Percocet 325-5 Mg) 1 tab PO Q4H PRN PRN Reason: Pain (moderate 4-6) Last Admin: 02/06/18 06:07 Dose: 1 tab Polyethylene Glycol (Miralax) 17 gm PO DAILY PRN PRN Reason: Constipation Prednisone (Prednisone) 5 mg PO DAILY [facility] Last Admin: 02/07/18 10:13 Dose: Admin: 02/06/18 08:00 Dose: 5 mg Senna/Docusate Sodium (Senna Plus) 1 tab PO BID PRN PRN Reason: Constipation Simvastatin (Zocor) 20 mg PO BEDTIME [facility] Last Admin: 02/06/18 20:44 Dose: 20 mg Admin: 02/05/18 21:43 Dose: 20 mg Temazepam (Restoril) 7.5 mg PO BEDTIME PRN PRN Reason: Sleep Vancomycin HCl (Pharmacy To Dose - Vancomycin) 0 dose .XX ASDIRECTED PRN PRN Reason: RX TO DOSE MAG Assessment/Plan Comment:: Stress dose of steroids, hold prednisone.
[2018-02-05] MEDS: Heparin Sodium 5,000 Units/ML Vial SUBCUT SCH (21:42)
[2018-02-05] MEDS: Metoprolol Tartrate 25 MG Tab PO SCH (21:43)
[2018-02-05] MEDS: Simvastatin 20 MG Tab PO SCH (21:43)
[2018-02-05] MEDS: Gabapentin 300 MG Cap PO SCH (21:43)
[2018-02-05] MEDS: Mycophenolate Mofetil 250 MG Cap PO SCH (21:44)
[2018-02-05] MEDS: Vancomycin 1 GM, Vancomycin 250 MG in Sodium Chloride 0.9% 250 ML IV SCH (21:45)
[2018-02-06] MEDS: Heparin Sodium 5,000 Units/ML Vial SUBCUT SCH ×3 (04:05→20:50)
[2018-02-06] MEDS: Levothyroxine 50 MCG Tab PO SCH (06:07)
[2018-02-06] MEDS: Gabapentin 300 MG Cap PO SCH ×2 (07:59→20:47)
[2018-02-06] MEDS: Lidocaine 5% 700 MG Patch TOP SCH (07:59)
[2018-02-06] MEDS: Allopurinol 100 MG Tab PO SCH (07:59)
[2018-02-06] MEDS: Metoprolol Tartrate 25 MG Tab PO SCH ×2 (07:59→20:44)
[2018-02-06] MEDS: Famotidine 20 MG Tab PO SCH (07:59)
[2018-02-06] MEDS: predniSONE 5 MG Tab PO SCH (08:00)
[2018-02-06] MEDS: Mycophenolate Mofetil 250 MG Cap PO SCH ×2 (08:01→20:49)
--- NOTE | 2018-02-06 08:36 | CR ---
Right tibia and fibula: AP and lateral views of the right tibia and fibula were obtained. Comparison: No previous study. Knee prosthesis is seen. Components are aligned. Vascular calcification is noted. Bony structures are osteopenic. Dystrophic calcifications are noted within the soft tissues anterior to the knee which are felt to be incidental. Plantar spur is noted. Soft tissue swelling appears to be present most prominent along the anterior ankle. Impression: 1. Multiple nonacute findings as noted above. Diagnostic code #2
[2018-02-06] MEDS ORDERED: Magnesium Sulfate/Water 2 GM in Premix Bag 1 BAG IV ONE (11:10)
[2018-02-06] MEDS: cefTRIAXone 2 GM in Sodium Chloride 0.9% 100 ML IV SCH (20:39)
[2018-02-06] MEDS: Simvastatin 20 MG Tab PO SCH (20:44)
[2018-02-06] MEDS: methylPREDNISolone Sodium Succinate 40 MG/1 ML SDV IVPUSH SCH (20:44)
[2018-02-06] MEDS: Vancomycin 1 GM, Vancomycin 250 MG in Sodium Chloride 0.9% 250 ML IV SCH (22:44)
[2018-02-07] MEDS: Heparin Sodium 5,000 Units/ML Vial SUBCUT SCH ×3 (04:36→21:56)
[2018-02-07] MEDS: Levothyroxine 50 MCG Tab PO SCH (06:17)
[2018-02-07] MEDS: methylPREDNISolone Sodium Succinate 40 MG/1 ML SDV IVPUSH SCH ×2 (08:32→22:03)
[2018-02-07] MEDS: Famotidine 20 MG Tab PO SCH (08:32)
[2018-02-07] MEDS: Metoprolol Tartrate 25 MG Tab PO SCH ×2 (08:32→22:01)
[2018-02-07] MEDS: Gabapentin 300 MG Cap PO SCH ×2 (08:32→22:01)
[2018-02-07] MEDS: Allopurinol 100 MG Tab PO SCH (08:32)
[2018-02-07] MEDS: Lidocaine 5% 700 MG Patch TOP SCH (08:33)
[2018-02-07] MEDS: Mycophenolate Mofetil 250 MG Cap PO SCH ×2 (08:40→22:02)
[2018-02-07] MEDS: predniSONE 5 MG Tab PO SCH (10:13)
--- NOTE | 2018-02-07 15:15 | PCM.PN ---
- General Info Date of Service: 02/06/18 Functional Status: Reports: Pain Controlled, Tolerating Diet, Ambulating, Urinating - Review of Systems General: Reports: No Symptoms HEENT: Reports: No Symptoms Pulmonary: Reports: No Symptoms Cardiovascular: Reports: No Symptoms Gastrointestinal: Reports: No Symptoms Genitourinary: Reports: No Symptoms Musculoskeletal: Reports: No Symptoms Skin: Reports: No Symptoms Neurological: Reports: No Symptoms Psychiatric: Reports: No Symptoms - Patient Data Vitals - Most Recent: Last Vital Signs Temp 36.9 C 02/07/18 07:44 Pulse 60 02/07/18 08:32 Resp 16 02/07/18 07:44 BP 136/92 H 02/07/18 08:32 Pulse Ox 94 L 02/07/18 07:44 Weight - Most Recent: 96.207 kg I&O - Last 24 Hours: Intake & Output 02/07/18 02/07/18 02/07/18 06:59 14:59 22:59 Intake Total 550 480 Output Total 1500 Balance -950 480 Lab Results Last 24 Hours: Laboratory Results - last 24 hr 02/07/18 02/07/18 02/07/18 Range/Units 05:55 05:55 05:55 WBC 7.59 (3.98-10.04) K/mm3 RBC 3.72 L (3.98-5.22) M/mm3 Hgb 11.5 (11.2-15.7) gm/L Hct 36.9 (34.1-44.9) % MCV 99.2 H (79.4-94.8) fl MCH 30.9 (25.6-32.2) pg MCHC 31.2 L (32.2-35.5) g/dl RDW Std Deviation 51.9 H (36.4-46.3) fL Plt Count 262 (182-369) K/mm3 MPV 10.1 (9.4-12.3) fl Neut % (Auto) 84.8 H (34.0-71.1) % Lymph % (Auto) 11.2 L (19.3-51.7) % [place] % (Auto) 1.3 L (4.7-12.5) % Eos % (Auto) 0.1 L (0.7-5.8) Baso % (Auto) 0.1 (0.1-1.2) % Neut # (Auto) 6.43 H (1.56-6.13) K/mm3 Lymph # (Auto) 0.85 L (1.18-3.74) K/mm3 [place] # (Auto) 0.10 L (0.24-0.36) K/mm3 Eos # (Auto) 0.01 L (0.04-0.36) K/mm3 Baso # (Auto) 0.01 (0.01-0.08) K/mm3 Manual Slide Review Abnormal smear Sodium 140 (136-145) mEq/L Potassium 5.3 H (3.5-5.1) mEq/L Chloride 109 H (98-107) mEq/L Carbon Dioxide 23 (21-32) mEq/L Anion Gap 13.3 (5-15) BUN 31 H (7-18) mg/dL Creatinine 1.4 H (0.55-1.02) mg/dL Est Cr Clr Drug Dosing 30.44 mL/min Estimated GFR (MDRD) 37 (>60) mL/min BUN/Creatinine Ratio 22.1 H (14-18) Glucose 233 H (83-115) mg/dL Lactic Acid 1.9 (0.4-2.0) mmol/L Calcium 10.0 (8.5-10.1) mg/dL Magnesium 2.1 (1.8-2.4) mg/dl C-Reactive Protein 3.1 H* (<1.0) mg/dL [place] Results Last 24 Hours: Microbiology 02/05/18 20:00 Aerobic Blood Culture - Preliminary Blood - Venous - Lab Draw NO GROWTH AFTER 1 DAY Anaerobic Blood Culture - Preliminary NO GROWTH AFTER 1 DAY 02/05/18 19:28 Aerobic Blood Culture - Preliminary Blood - Venous NO GROWTH AFTER 1 DAY Anaerobic Blood Culture - Preliminary NO GROWTH AFTER 1 DAY Med Orders - Current: Current Medications Acetaminophen (Tylenol) 650 mg PO Q4H PRN PRN Reason: Pain (Mild 1-3)/fever Albuterol (Proventil Neb Soln) 2.5 mg NEB Q2H PRN PRN Reason: Shortness Of Breath/wheezing Albuterol/Ipratropium (Duoneb 3.0-0.5 Mg/3 Ml) 3 ml NEB Q4H PRN PRN Reason: Shortness Of Breath/wheezing Allopurinol (Zyloprim) 100 mg PO DAILY [facility] Last Admin: 02/07/18 08:32 Dose: 100 mg Bisacodyl (Dulcolax) 5 mg PO DAILY PRN PRN Reason: Constipation Cyclosporine (Modified) (Neoral) 75 mg PO BID [facility] Last Admin: 02/07/18 08:41 Dose: 75 mg Docusate Sodium (Colace) 100 mg PO BID PRN PRN Reason: Constipation Famotidine (Pepcid) 20 mg PO DAILY [facility] Last Admin: 02/07/18 08:32 Dose: 20 mg Gabapentin (Neurontin) 300 mg PO BID [facility] Last Admin: 02/07/18 08:32 Dose: 300 mg Heparin Sodium (Porcine) (Heparin Sodium) 5,000 units SUBCUT Q8H [facility] Last Admin: 02/07/18 13:09 Dose: Not Given Hydromorphone HCl (Dilaudid) 0.25 mg IVPUSH Q2H PRN PRN Reason: Pain (severe 7-10) Ceftriaxone Sodium 2 gm/ (Sodium Chloride) 100 mls @ 100 mls/hr IV Q24H [facility] Last Admin: 02/06/18 20:39 Dose: 100 mls/hr Vancomycin HCl 1 gm/Vancomycin HCl 250 mg/ Sodium Chloride 250 mls @ 250 mls/ hr IV Q24H [facility] Last Admin: 02/06/18 22:44 Dose: 250 mls/hr Levothyroxine Sodium (Synthroid) 50 mcg PO ACBREAKFAST [facility] Last Admin: 02/07/18 06:17 Dose: 50 mcg Lidocaine (Lidoderm 5%) 700 mg TOP DAILY [facility] Last Admin: 02/07/18 08:33 Dose: Not Given Magnesium Hydroxide (Milk Of Magnesia) 30 ml PO Q12H PRN PRN Reason: Constipation Methylprednisolone Sodium Succinate (Solu-Medrol) 40 mg IVPUSH Q12H [facility] Last Admin: 02/07/18 08:32 Dose: 40 mg Metoprolol Tartrate (Lopressor) 25 mg PO Q12HR [facility] Last Admin: 02/07/18 08:32 Dose: 25 mg Miscellaneous Information (Remove Patch) 1 ea TRDERM Q24H [facility] Last Admin: 02/06/18 20:50 Dose: Not Given Mycophenolate Mofetil (Cellcept) 500 mg PO BID [facility] Last Admin: 02/07/18 08:40 Dose: 500 mg Ondansetron HCl (Zofran Odt) 4 mg PO Q4H PRN PRN Reason: nausea, able to take PO Ondansetron HCl (Zofran) 4 mg IV Q4H PRN PRN Reason: Nausea/Vomiting Oxycodone/Acetaminophen (Percocet 325-5 Mg) 1 tab PO Q4H PRN PRN Reason: Pain (moderate 4-6) Last Admin: 02/06/18 06:07 Dose: 1 tab Polyethylene Glycol (Miralax) 17 gm PO DAILY PRN PRN Reason: Constipation Prednisone (Prednisone) 5 mg PO DAILY [facility] Last Admin: 02/07/18 10:13 Dose: Not Given Senna/Docusate Sodium (Senna Plus) 1 tab PO BID PRN PRN Reason: Constipation Simvastatin (Zocor) 20 mg PO BEDTIME [facility] Last Admin: 02/06/18 20:44 Dose: 20 mg Temazepam (Restoril) 7.5 mg PO BEDTIME PRN PRN Reason: Sleep Vancomycin HCl (Pharmacy To Dose - Vancomycin) 0 dose .XX ASDIRECTED PRN PRN Reason: RX TO DOSE MAG Discontinued Medications Ceftriaxone Sodium (Rocephin) 2 gm IVPUSH Q24H [facility] Last Admin: 02/05/18 21:04 Dose: Not Given Ceftriaxone Sodium 1 gm/ (Sodium Chloride) 100 mls @ 200 mls/hr IV ONETIME ONE Stop: 02/05/18 16:00 Last Admin: 02/05/18 15:49 Dose: 200 mls/hr Ceftriaxone Sodium 1 gm/ (Sodium Chloride) 100 mls @ 200 mls/hr IV ONETIME ONE Stop: 02/05/18 21:14 Last Admin: 02/05/18 21:43 Dose: 200 mls/hr Sodium Chloride (Normal Saline) 1,000 mls @ 125 mls/hr IV ASDIRECTED [facility] Stop: 02/06/18 02:46 Last Admin: 02/06/18 00:48 Dose: 125 mls/hr Magnesium Sulfate 2 gm/ Premix 50 mls @ 25 mls/hr IV ONETIME ONE Stop: 02/06/18 13:09 Last Admin: 02/06/18 11:14 Dose: 25 mls/hr Miscellaneous Information (Remove Patch) 1 ea TRDERM ONETIME ONE Stop: 02/05/18 21:31 Last Admin: 02/05/18 22:05 Dose: Not Given - Exam Quality Assessment: DVT Prophylaxis General: Alert, Oriented, Cooperative HEENT: Pupils Equal, Pupils Reactive, EOMI, Mucous Membr. Moist/[place] Neck: Supple, Trachea Midline Lungs: Normal Respiratory Effort Cardiovascular: Regular Rate, Regular Rhythm GI/Abdominal Exam: Normal Bowel Sounds, Soft, Non-Tender, No Organomegaly, No Distention (Female) Exam: Normal External Exam Back Exam: Normal Inspection Extremities: Normal Inspection, Non-Tender, Normal Capillary Refill Skin: Warm Wound/Incisions: Healing Well, Dressing Dry and Intact Neurological: No New Focal Deficit Psy/Mental Status: Alert, Normal Affect, Normal Mood - Problem List Review Problem List Initiated/Reviewed/Updated: Yes - My Orders Last 24 Hours: My Active Orders 02/06/18 19:31 CECI Hose [Antiembolic Hose] [OM.PC] Routine 02/06/18 20:00 methylPREDNISolone Sod Succ [Solu-MEDROL] 40 mg IVPUSH Q12H 02/07/18 10:55 Charles Bandage [RC] ROUTINE CHARLES Bandage [Elastic Wrap] [OM.PC] Routine 02/07/18 20:30 VANCOMYCIN TROUGH [CHEM] Timed - Plan Plan:: I/P: Acute: Right lower leg cellulitis s/p fall * She reports her knee "gave out" 1 week ago and she fell down three steps; usually uses walker but at the time was using hand rails * Risk factors: bilateral knee replacements (states she may also need right hip replacement), unsteady gait with walker, h/o peripheral neuropathy * Denies dizziness, LOC, F/C, N/V/D * She thought it was "just a bruise" but then pain, swelling and redness increased * No leukocytosis, Lactic Acid WNL * CRP elevated 4.9 * Blood cultures pending * MRSA by PCR screen pending (no active wound to culture) * ED was asked to call career coach to confirm type of antibiotic she can handle d/t renal transplant: * Recommendation was not documented, but was reportedly 3rd generation Cephalosporin and Vancomycin * Start Rocephin and Vancomycin * PT/OT consult for evaluation of knee weakness/unsteadiness * IVF PRN Chronic: h/o CVA (2010)--> states she has no residual symptoms HTN Hypothyroidism Peripheral neuropathy h/o bilateral knee replacement (L knee 2004, R knee 05/2017) Renal failure s/p renal transplant (2014) * continue at-home immuno-suppressant medications; add IV steroids/stress dose ; hold prednisone * reverse isolation not needed at this time, WBC/Neut WNL Plan: Admitted to Medical Floor She remains stable Other orders as indicated above Routine AM labs Renal Diet/Heart Healthy Diet CM/SW for discharge planning DVT Prophylaxis: Heparin GI Prophylaxis: Pepcid Code Status: Full Code; PCP: Dr. Dann GARCIA ~24-48 hours
--- NOTE | 2018-02-07 18:46 | PCM.PN ---
- General Info Date of Service: 02/07/18 Functional Status: Reports: Tolerating Diet, Ambulating, Urinating - Review of Systems General: Reports: No Symptoms HEENT: Reports: No Symptoms Pulmonary: Reports: No Symptoms Cardiovascular: Reports: No Symptoms Gastrointestinal: Reports: No Symptoms Genitourinary: Reports: No Symptoms Musculoskeletal: Reports: No Symptoms Skin: Reports: No Symptoms Neurological: Reports: No Symptoms Psychiatric: Reports: No Symptoms - Patient Data Vitals - Most Recent: Last Vital Signs Temp 37.4 C 02/07/18 15:54 Pulse 71 02/07/18 15:55 Resp 18 02/07/18 15:54 BP 152/73 H 02/07/18 15:55 Pulse Ox 96 02/07/18 15:55 Weight - Most Recent: 96.207 kg I&O - Last 24 Hours: Intake & Output 02/07/18 02/07/18 02/07/18 06:59 14:59 22:59 Intake Total 550 480 700 Output Total 1500 350 Balance -950 480 350 Lab Results Last 24 Hours: Laboratory Results - last 24 hr 02/07/18 02/07/18 02/07/18 Range/Units 05:55 05:55 05:55 WBC 7.59 (3.98-10.04) K/mm3 RBC 3.72 L (3.98-5.22) M/mm3 Hgb 11.5 (11.2-15.7) gm/L Hct 36.9 (34.1-44.9) % MCV 99.2 H (79.4-94.8) fl MCH 30.9 (25.6-32.2) pg MCHC 31.2 L (32.2-35.5) g/dl RDW Std Deviation 51.9 H (36.4-46.3) fL Plt Count 262 (182-369) K/mm3 MPV 10.1 (9.4-12.3) fl Neut % (Auto) 84.8 H (34.0-71.1) % Lymph % (Auto) 11.2 L (19.3-51.7) % [place] % (Auto) 1.3 L (4.7-12.5) % Eos % (Auto) 0.1 L (0.7-5.8) Baso % (Auto) 0.1 (0.1-1.2) % Neut # (Auto) 6.43 H (1.56-6.13) K/mm3 Lymph # (Auto) 0.85 L (1.18-3.74) K/mm3 [place] # (Auto) 0.10 L (0.24-0.36) K/mm3 Eos # (Auto) 0.01 L (0.04-0.36) K/mm3 Baso # (Auto) 0.01 (0.01-0.08) K/mm3 Manual Slide Review Abnormal smear Sodium 140 (136-145) mEq/L Potassium 5.3 H (3.5-5.1) mEq/L Chloride 109 H (98-107) mEq/L Carbon Dioxide 23 (21-32) mEq/L Anion Gap 13.3 (5-15) BUN 31 H (7-18) mg/dL Creatinine 1.4 H (0.55-1.02) mg/dL Est Cr Clr Drug Dosing 30.44 mL/min Estimated GFR (MDRD) 37 (>60) mL/min BUN/Creatinine Ratio 22.1 H (14-18) Glucose 233 H (83-115) mg/dL Lactic Acid 1.9 (0.4-2.0) mmol/L Calcium 10.0 (8.5-10.1) mg/dL Magnesium 2.1 (1.8-2.4) mg/dl C-Reactive Protein 3.1 H* (<1.0) mg/dL [place] Results Last 24 Hours: Microbiology 02/05/18 20:00 Aerobic Blood Culture - Preliminary Blood - Venous - Lab Draw NO GROWTH AFTER 1 DAY Anaerobic Blood Culture - Preliminary NO GROWTH AFTER 1 DAY 02/05/18 19:28 Aerobic Blood Culture - Preliminary Blood - Venous NO GROWTH AFTER 1 DAY Anaerobic Blood Culture - Preliminary NO GROWTH AFTER 1 DAY Med Orders - Current: Current Medications Acetaminophen (Tylenol) 650 mg PO Q4H PRN PRN Reason: Pain (Mild 1-3)/fever Albuterol (Proventil Neb Soln) 2.5 mg NEB Q2H PRN PRN Reason: Shortness Of Breath/wheezing Albuterol/Ipratropium (Duoneb 3.0-0.5 Mg/3 Ml) 3 ml NEB Q4H PRN PRN Reason: Shortness Of Breath/wheezing Allopurinol (Zyloprim) 100 mg PO DAILY [facility] Last Admin: 02/07/18 08:32 Dose: 100 mg Bisacodyl (Dulcolax) 5 mg PO DAILY PRN PRN Reason: Constipation Cyclosporine (Modified) (Neoral) 75 mg PO BID [facility] Last Admin: 02/07/18 08:41 Dose: 75 mg Docusate Sodium (Colace) 100 mg PO BID PRN PRN Reason: Constipation Famotidine (Pepcid) 20 mg PO DAILY [facility] Last Admin: 02/07/18 08:32 Dose: 20 mg Gabapentin (Neurontin) 300 mg PO BID [facility] Last Admin: 02/07/18 08:32 Dose: 300 mg Heparin Sodium (Porcine) (Heparin Sodium) 5,000 units SUBCUT Q8H [facility] Last Admin: 02/07/18 13:09 Dose: Not Given Hydromorphone HCl (Dilaudid) 0.25 mg IVPUSH Q2H PRN PRN Reason: Pain (severe 7-10) Ceftriaxone Sodium 2 gm/ (Sodium Chloride) 100 mls @ 100 mls/hr IV Q24H [facility] Last Admin: 02/06/18 20:39 Dose: 100 mls/hr Vancomycin HCl 1 gm/Vancomycin HCl 250 mg/ Sodium Chloride 250 mls @ 250 mls/ hr IV Q24H [facility] Last Admin: 02/06/18 22:44 Dose: 250 mls/hr Levothyroxine Sodium (Synthroid) 50 mcg PO ACBREAKFAST [facility] Last Admin: 02/07/18 06:17 Dose: 50 mcg Lidocaine (Lidoderm 5%) 700 mg TOP DAILY [facility] Last Admin: 02/07/18 08:33 Dose: Not Given Magnesium Hydroxide (Milk Of Magnesia) 30 ml PO Q12H PRN PRN Reason: Constipation Methylprednisolone Sodium Succinate (Solu-Medrol) 40 mg IVPUSH Q12H [facility] Last Admin: 02/07/18 08:32 Dose: 40 mg Metoprolol Tartrate (Lopressor) 25 mg PO Q12HR [facility] Last Admin: 02/07/18 08:32 Dose: 25 mg Miscellaneous Information (Remove Patch) 1 ea TRDERM Q24H [facility] Last Admin: 02/06/18 20:50 Dose: Not Given Mycophenolate Mofetil (Cellcept) 500 mg PO BID [facility] Last Admin: 02/07/18 08:40 Dose: 500 mg Ondansetron HCl (Zofran Odt) 4 mg PO Q4H PRN PRN Reason: nausea, able to take PO Ondansetron HCl (Zofran) 4 mg IV Q4H PRN PRN Reason: Nausea/Vomiting Oxycodone/Acetaminophen (Percocet 325-5 Mg) 1 tab PO Q4H PRN PRN Reason: Pain (moderate 4-6) Last Admin: 02/06/18 06:07 Dose: 1 tab Polyethylene Glycol (Miralax) 17 gm PO DAILY PRN PRN Reason: Constipation Senna/Docusate Sodium (Senna Plus) 1 tab PO BID PRN PRN Reason: Constipation Simvastatin (Zocor) 20 mg PO BEDTIME [facility] Last Admin: 02/06/18 20:44 Dose: 20 mg Temazepam (Restoril) 7.5 mg PO BEDTIME PRN PRN Reason: Sleep Vancomycin HCl (Pharmacy To Dose - Vancomycin) 0 dose .XX ASDIRECTED PRN PRN Reason: RX TO DOSE MAG Discontinued Medications Ceftriaxone Sodium (Rocephin) 2 gm IVPUSH Q24H [facility] Last Admin: 02/05/18 21:04 Dose: Not Given Ceftriaxone Sodium 1 gm/ (Sodium Chloride) 100 mls @ 200 mls/hr IV ONETIME ONE Stop: 02/05/18 16:00 Last Admin: 02/05/18 15:49 Dose: 200 mls/hr Ceftriaxone Sodium 1 gm/ (Sodium Chloride) 100 mls @ 200 mls/hr IV ONETIME ONE Stop: 02/05/18 21:14 Last Admin: 02/05/18 21:43 Dose: 200 mls/hr Sodium Chloride (Normal Saline) 1,000 mls @ 125 mls/hr IV ASDIRECTED [facility] Stop: 02/06/18 02:46 Last Admin: 02/06/18 00:48 Dose: 125 mls/hr Magnesium Sulfate 2 gm/ Premix 50 mls @ 25 mls/hr IV ONETIME ONE Stop: 02/06/18 13:09 Last Admin: 02/06/18 11:14 Dose: 25 mls/hr Miscellaneous Information (Remove Patch) 1 ea TRDERM ONETIME ONE Stop: 02/05/18 21:31 Last Admin: 02/05/18 22:05 Dose: Not Given Prednisone (Prednisone) 5 mg PO DAILY [facility] Last Admin: 02/07/18 10:13 Dose: Not Given - Exam Quality Assessment: DVT Prophylaxis General: Alert, Oriented, Cooperative, No Acute Distress HEENT: Pupils Equal, Pupils Reactive, EOMI Neck: Trachea Midline, No JVD Lungs: Clear to Auscultation, Normal Respiratory Effort Cardiovascular: Regular Rate, Regular Rhythm GI/Abdominal Exam: Normal Bowel Sounds, Soft, Non-Tender, No Organomegaly, No Distention (Female) Exam: Deferred Back Exam: Normal Inspection Extremities: Normal Inspection, Non-Tender, Normal Capillary Refill, Pedal Edema (trace) Skin: Warm, Dry, Intact, Other (decreased reddness) Wound/Incisions: No Drainage, Erythema Improving Neurological: No New Focal Deficit, Normal Speech Psy/Mental Status: Alert, Normal Affect, Normal Mood - Problem List Review Problem List Initiated/Reviewed/Updated: Yes - My Orders Last 24 Hours: My Active Orders 02/06/18 19:31 CECI Hose [Antiembolic Hose] [OM.PC] Routine 02/06/18 20:00 methylPREDNISolone Sod Succ [Solu-MEDROL] 40 mg IVPUSH Q12H 02/07/18 10:55 Charles Bandage [RC] ROUTINE CHARLES Bandage [Elastic Wrap] [OM.PC] Routine 02/07/18 20:30 VANCOMYCIN TROUGH [CHEM] Timed - Plan Plan:: I/P: Acute: Right lower leg cellulitis s/p fall * She reports her knee "gave out" 1 week ago and she fell down three steps; usually uses walker but at the time was using hand rails * Risk factors: bilateral knee replacements (states she may also need right hip replacement), unsteady gait with walker, h/o peripheral neuropathy * Denies dizziness, LOC, F/C, N/V/D * She thought it was "just a bruise" but then pain, swelling and redness increased * No leukocytosis, Lactic Acid WNL * CRP elevated 4.9 * Blood cultures pending * MRSA by PCR screen pending (no active wound to culture) * ED was asked to call survey and mapping technician to confirm type of antibiotic she can handle d/t renal transplant: * Recommendation was not documented, but was reportedly 3rd generation Cephalosporin and Vancomycin * Start Rocephin and Vancomycin * PT/OT consult for evaluation of knee weakness/unsteadiness * IVF PRN Chronic: h/o CVA (2010)--> states she has no residual symptoms HTN Hypothyroidism Peripheral neuropathy h/o bilateral knee replacement (L knee 2004, R knee 05/2017) Renal failure s/p renal transplant (2014) * continue at-home immuno-suppressant medications; add IV steroids/stress dose ; hold prednisone * reverse isolation not needed at this time, WBC/Neut WNL Plan: Medical Floor CHARLES wraps, increase ambulation; patient is refusing UFH She remains stable Other orders as indicated above Routine AM labs Renal Diet/Heart Healthy Diet CM/SW for discharge planning DVT Prophylaxis: Heparin GI Prophylaxis: Pepcid Code Status: Full Code; PCP: Dr. Dann GARCIA ~24-48 hours
[2018-02-07] MEDS: cefTRIAXone 2 GM in Sodium Chloride 0.9% 100 ML IV SCH (21:59)
[2018-02-07] MEDS: Vancomycin 1 GM, Vancomycin 250 MG in Sodium Chloride 0.9% 250 ML IV SCH (21:59)
[2018-02-07] MEDS: Simvastatin 20 MG Tab PO SCH (22:00)
[2018-02-08] MEDS: Heparin Sodium 5,000 Units/ML Vial SUBCUT SCH ×3 (05:22→20:49)
[2018-02-08] MEDS: Levothyroxine 50 MCG Tab PO SCH (05:22)
[2018-02-08] MEDS: Gabapentin 300 MG Cap PO SCH ×2 (08:08→20:49)
[2018-02-08] MEDS: methylPREDNISolone Sodium Succinate 40 MG/1 ML SDV IVPUSH SCH ×2 (08:08→20:49)
[2018-02-08] MEDS: Allopurinol 100 MG Tab PO SCH (08:08)
[2018-02-08] MEDS: Famotidine 20 MG Tab PO SCH (08:09)
[2018-02-08] MEDS: Mycophenolate Mofetil 250 MG Cap PO SCH ×2 (08:10→20:51)
[2018-02-08] MEDS: Lidocaine 5% 700 MG Patch TOP SCH (08:10)
[2018-02-08] MEDS: Metoprolol Tartrate 25 MG Tab PO SCH ×2 (08:25→20:49)
[2018-02-08] MEDS ORDERED: Sodium Chloride 0.45% 1,000 ML IV SCH (10:00)
--- NOTE | 2018-02-08 14:07 | PCM.PN ---
- General Info Date of Service: 02/08/18 Subjective Update: Feels better, discussed plan of care-->conservative med mgt; begin taper of steroid 02/09. Functional Status: Reports: Pain Controlled, Tolerating Diet, Ambulating - Review of Systems General: Reports: No Symptoms HEENT: Reports: No Symptoms Pulmonary: Reports: No Symptoms Cardiovascular: Reports: No Symptoms Gastrointestinal: Reports: No Symptoms Genitourinary: Reports: No Symptoms Musculoskeletal: Reports: No Symptoms Skin: Reports: No Symptoms Neurological: Reports: No Symptoms Psychiatric: Reports: No Symptoms - Patient Data Vitals - Most Recent: Last Vital Signs Temp 36.6 C 02/08/18 08:18 Pulse 68 02/08/18 08:25 Resp 19 02/08/18 08:18 BP 161/89 H 02/08/18 09:00 Pulse Ox 93 L 02/08/18 08:18 Weight - Most Recent: 97.432 kg I&O - Last 24 Hours: Intake & Output 02/07/18 02/08/18 02/08/18 22:59 06:59 14:59 Intake Total 700 1000 180 Output Total 350 1000 Balance 350 0 180 Lab Results Last 24 Hours: Laboratory Results - last 24 hr 02/07/18 02/08/18 02/08/18 Range/Units 20:30 06:00 06:00 WBC 12.46 H (3.98-10.04) K/mm3 RBC 3.58 L (3.98-5.22) M/mm3 Hgb 11.0 L (11.2-15.7) gm/L Hct 35.8 (34.1-44.9) % MCV 100.0 H (79.4-94.8) fl MCH 30.7 (25.6-32.2) pg MCHC 30.7 L (32.2-35.5) g/dl RDW Std Deviation 51.1 H (36.4-46.3) fL Plt Count 287 (182-369) K/mm3 MPV 10.2 (9.4-12.3) fl Neut % (Auto) 87.6 H (34.0-71.1) % Lymph % (Auto) 8.4 L (19.3-51.7) % Williams % (Auto) 2.1 L (4.7-12.5) % Eos % (Auto) 0 L (0.7-5.8) Baso % (Auto) 0.1 (0.1-1.2) % Neut # (Auto) 10.91 H (1.56-6.13) K/mm3 Lymph # (Auto) 1.05 L (1.18-3.74) K/mm3 Williams # (Auto) 0.26 (0.24-0.36) K/mm3 Eos # (Auto) 0.00 L (0.04-0.36) K/mm3 Baso # (Auto) 0.01 (0.01-0.08) K/mm3 Manual Slide Review Abnormal smear Sodium 140 (136-145) mEq/L Potassium 5.1 (3.5-5.1) mEq/L Chloride 109 H (98-107) mEq/L Carbon Dioxide 22 (21-32) mEq/L Anion Gap 14.1 (5-15) BUN 36 H (7-18) mg/dL Creatinine 1.2 H (0.55-1.02) mg/dL Est Cr Clr Drug Dosing 35.52 mL/min Estimated GFR (MDRD) 44 (>60) mL/min BUN/Creatinine Ratio 30.0 H (14-18) Glucose 223 H (83-115) mg/dL Lactic Acid (0.4-2.0) mmol/L Calcium 10.4 H (8.5-10.1) mg/dL Magnesium 2.1 (1.8-2.4) mg/dl C-Reactive Protein 1.5 H* (<1.0) mg/dL Vancomycin Trough 11.6 (10.0-20.0) 02/08/18 Range/Units 06:00 WBC (3.98-10.04) K/mm3 RBC (3.98-5.22) M/mm3 Hgb (11.2-15.7) gm/L Hct (34.1-44.9) % MCV (79.4-94.8) fl MCH (25.6-32.2) pg MCHC (32.2-35.5) g/dl RDW Std Deviation (36.4-46.3) fL Plt Count (182-369) K/mm3 MPV (9.4-12.3) fl Neut % (Auto) (34.0-71.1) % Lymph % (Auto) (19.3-51.7) % Williams % (Auto) (4.7-12.5) % Eos % (Auto) (0.7-5.8) Baso % (Auto) (0.1-1.2) % Neut # (Auto) (1.56-6.13) K/mm3 Lymph # (Auto) (1.18-3.74) K/mm3 Williams # (Auto) (0.24-0.36) K/mm3 Eos # (Auto) (0.04-0.36) K/mm3 Baso # (Auto) (0.01-0.08) K/mm3 Manual Slide Review Sodium (136-145) mEq/L Potassium (3.5-5.1) mEq/L Chloride (98-107) mEq/L Carbon Dioxide (21-32) mEq/L Anion Gap (5-15) BUN (7-18) mg/dL Creatinine (0.55-1.02) mg/dL Est Cr Clr Drug Dosing mL/min Estimated GFR (MDRD) (>60) mL/min BUN/Creatinine Ratio (14-18) Glucose (83-115) mg/dL Lactic Acid 1.7 (0.4-2.0) mmol/L Calcium (8.5-10.1) mg/dL Magnesium (1.8-2.4) mg/dl C-Reactive Protein (<1.0) mg/dL Vancomycin Trough (10.0-20.0) Bebeto Results Last 24 Hours: Microbiology 02/05/18 20:00 Aerobic Blood Culture - Preliminary Blood - Venous - Lab Draw NO GROWTH AFTER 2 DAYS Anaerobic Blood Culture - Preliminary NO GROWTH AFTER 2 DAYS 02/05/18 19:28 Aerobic Blood Culture - Preliminary Blood - Venous NO GROWTH AFTER 2 DAYS Anaerobic Blood Culture - Preliminary NO GROWTH AFTER 2 DAYS Med Orders - Current: Current Medications Acetaminophen (Tylenol) 650 mg PO Q4H PRN PRN Reason: Pain (Mild 1-3)/fever Albuterol (Proventil Neb Soln) 2.5 mg NEB Q2H PRN PRN Reason: Shortness Of Breath/wheezing Albuterol/Ipratropium (Duoneb 3.0-0.5 Mg/3 Ml) 3 ml NEB Q4H PRN PRN Reason: Shortness Of Breath/wheezing Allopurinol (Zyloprim) 100 mg PO DAILY [facility] Last Admin: 02/08/18 08:08 Dose: 100 mg Bisacodyl (Dulcolax) 5 mg PO DAILY PRN PRN Reason: Constipation Cyclosporine (Modified) (Neoral) 75 mg PO BID [facility] Last Admin: 02/08/18 08:09 Dose: 75 mg Docusate Sodium (Colace) 100 mg PO BID PRN PRN Reason: Constipation Famotidine (Pepcid) 20 mg PO DAILY [facility] Last Admin: 02/08/18 08:09 Dose: 20 mg Gabapentin (Neurontin) 300 mg PO BID [facility] Last Admin: 02/08/18 08:08 Dose: 300 mg Heparin Sodium (Porcine) (Heparin Sodium) 5,000 units SUBCUT Q8H [facility] Last Admin: 02/08/18 12:46 Dose: 5,000 units Hydromorphone HCl (Dilaudid) 0.25 mg IVPUSH Q2H PRN PRN Reason: Pain (severe 7-10) Ceftriaxone Sodium 2 gm/ (Sodium Chloride) 100 mls @ 100 mls/hr IV Q24H [facility] Last Admin: 02/07/18 21:59 Dose: 100 mls/hr Vancomycin HCl 1 gm/Vancomycin HCl 250 mg/ Sodium Chloride 250 mls @ 250 mls/ hr IV Q24H [facility] Last Admin: 02/07/18 21:59 Dose: 250 mls/hr Sodium Chloride (Sodium Chloride 0.45%) 1,000 mls @ 100 mls/hr IV ASDIRECTED [facility] Stop: 02/08/18 18:00 Levothyroxine Sodium (Synthroid) 50 mcg PO ACBREAKFAST [facility] Last Admin: 02/08/18 05:22 Dose: 50 mcg Lidocaine (Lidoderm 5%) 700 mg TOP DAILY [facility] Last Admin: 02/08/18 08:10 Dose: Not Given Magnesium Hydroxide (Milk Of Magnesia) 30 ml PO Q12H PRN PRN Reason: Constipation Methylprednisolone Sodium Succinate (Solu-Medrol) 40 mg IVPUSH Q12H [facility] Stop: 02/09/18 11:00 Last Admin: 02/08/18 08:08 Dose: 40 mg Metoprolol Tartrate (Lopressor) 25 mg PO Q12HR [facility] Last Admin: 02/08/18 08:25 Dose: 25 mg Miscellaneous Information (Remove Patch) 1 ea TRDERM Q24H [facility] Last Admin: 02/07/18 21:58 Dose: Not Given Mycophenolate Mofetil (Cellcept) 500 mg PO BID [facility] Last Admin: 02/08/18 08:10 Dose: 500 mg Ondansetron HCl (Zofran Odt) 4 mg PO Q4H PRN PRN Reason: nausea, able to take PO Ondansetron HCl (Zofran) 4 mg IV Q4H PRN PRN Reason: Nausea/Vomiting Oxycodone/Acetaminophen (Percocet 325-5 Mg) 1 tab PO Q4H PRN PRN Reason: Pain (moderate 4-6) Last Admin: 02/06/18 06:07 Dose: 1 tab Polyethylene Glycol (Miralax) 17 gm PO DAILY PRN PRN Reason: Constipation Prednisone (Prednisone) 20 mg PO DAILY@1400 KARIN Senna/Docusate Sodium (Senna Plus) 1 tab PO BID PRN PRN Reason: Constipation Simvastatin (Zocor) 20 mg PO BEDTIME [facility] Last Admin: 02/07/18 22:00 Dose: 20 mg Temazepam (Restoril) 7.5 mg PO BEDTIME PRN PRN Reason: Sleep Vancomycin HCl (Pharmacy To Dose - Vancomycin) 0 dose .XX ASDIRECTED PRN PRN Reason: RX TO DOSE MAG Discontinued Medications Ceftriaxone Sodium (Rocephin) 2 gm IVPUSH Q24H [facility] Last Admin: 02/05/18 21:04 Dose: Not Given Ceftriaxone Sodium 1 gm/ (Sodium Chloride) 100 mls @ 200 mls/hr IV ONETIME ONE Stop: 02/05/18 16:00 Last Admin: 02/05/18 15:49 Dose: 200 mls/hr Ceftriaxone Sodium 1 gm/ (Sodium Chloride) 100 mls @ 200 mls/hr IV ONETIME ONE Stop: 02/05/18 21:14 Last Admin: 02/05/18 21:43 Dose: 200 mls/hr Sodium Chloride (Normal Saline) 1,000 mls @ 125 mls/hr IV ASDIRECTED [facility] Stop: 02/06/18 02:46 Last Admin: 02/06/18 00:48 Dose: 125 mls/hr Magnesium Sulfate 2 gm/ Premix 50 mls @ 25 mls/hr IV ONETIME ONE Stop: 02/06/18 13:09 Last Admin: 02/06/18 11:14 Dose: 25 mls/hr Miscellaneous Information (Remove Patch) 1 sly LOMBARDI ONETIME ONE Stop: 02/05/18 21:31 Last Admin: 02/05/18 22:05 Dose: Not Given Prednisone (Prednisone) 5 mg PO DAILY [facility] Last Admin: 02/07/18 10:13 Dose: Not Given - Exam Quality Assessment: DVT Prophylaxis General: Alert, Oriented, Cooperative, No Acute Distress HEENT: Pupils Equal, Pupils Reactive, EOMI Neck: Supple, Trachea Midline, No JVD Lungs: Normal Respiratory Effort GI/Abdominal Exam: Normal Bowel Sounds, Soft, Non-Tender, No Organomegaly, No Distention (Female) Exam: Deferred Back Exam: Normal Inspection Extremities: Normal Inspection, Non-Tender, Normal Capillary Refill, Pedal Edema (trace) Skin: Warm Neurological: No New Focal Deficit Psy/Mental Status: Alert, Normal Affect, Normal Mood - Problem List Review Problem List Initiated/Reviewed/Updated: Yes - My Orders Last 24 Hours: My Active Orders 02/08/18 10:00 Sodium Chloride 0.45% 1,000 ml IV ASDIRECTED 02/09/18 14:00 predniSONE 20 mg PO DAILY@1400 - Plan Plan:: I/P: Acute: Hospital day 4 Right lower leg cellulitis s/p fall * She reports her knee "gave out" 1 week ago and she fell down three steps; usually uses walker but at the time was using hand rails * Risk factors: bilateral knee replacements (states she may also need right hip replacement), unsteady gait with walker, h/o peripheral neuropathy * Denies dizziness, LOC, F/C, N/V/D * She thought it was "just a bruise" but then pain, swelling and redness increased * No leukocytosis, Lactic Acid WNL * CRP elevated 4.9 * Blood cultures pending * MRSA by PCR screen pending (no active wound to culture) * ED was asked to call crown attacher to confirm type of antibiotic she can handle d/t renal transplant: * Recommendation was not documented, but was reportedly 3rd generation Cephalosporin and Vancomycin * Start Rocephin and Vancomycin * PT/OT consult for evaluation of knee weakness/unsteadiness * IVF PRN Chronic: h/o CVA (2010)--> states she has no residual symptoms HTN Hypothyroidism Peripheral neuropathy h/o bilateral knee replacement (L knee 2004, R knee 05/2017) Renal failure s/p renal transplant (2014) * continue at-home immuno-suppressant medications; add IV steroids/stress dose ; hold prednisone * reverse isolation not needed at this time, WBC/Neut WNL Plan: Medical Floor HECTOR wraps, increase ambulation; patient is refusing UFH She remains stable Other orders as indicated above Routine AM labs Heart Healthy Diet CM/SW for discharge planning DVT Prophylaxis: Heparin GI Prophylaxis: Pepcid Code Status: Full Code; PCP: Dr. Dann GARCIA ~24-48 hours
[2018-02-08] MEDS: hydrALAZINE 20 MG/ML SDV IVPUSH PRN (17:05)
[2018-02-08] MEDS: Simvastatin 20 MG Tab PO SCH (20:49)
[2018-02-08] MEDS: cefTRIAXone 2 GM in Sodium Chloride 0.9% 100 ML IV SCH (20:49)
[2018-02-08] MEDS: Vancomycin 1 GM, Vancomycin 250 MG in Sodium Chloride 0.9% 250 ML IV SCH (21:53)
[2018-02-09] MEDS: hydrALAZINE 20 MG/ML SDV IVPUSH PRN ×2 (03:33→22:26)
[2018-02-09] MEDS: Heparin Sodium 5,000 Units/ML Vial SUBCUT SCH ×3 (03:34→22:05)
[2018-02-09] MEDS: Levothyroxine 50 MCG Tab PO SCH (05:58)
[2018-02-09] MEDS: Metoprolol Tartrate 25 MG Tab PO SCH ×2 (08:59→22:06)
[2018-02-09] MEDS: Famotidine 20 MG Tab PO SCH (09:01)
[2018-02-09] MEDS: Gabapentin 300 MG Cap PO SCH ×2 (09:01→22:06)
[2018-02-09] MEDS: Allopurinol 100 MG Tab PO SCH (09:02)
[2018-02-09] MEDS: Mycophenolate Mofetil 250 MG Cap PO SCH ×2 (09:03→22:25)
[2018-02-09] MEDS: methylPREDNISolone Sodium Succinate 40 MG/1 ML SDV IVPUSH SCH (09:05)
[2018-02-09] MEDS: Lidocaine 5% 700 MG Patch TOP SCH (09:06)
--- NOTE | 2018-02-09 13:14 | PCM.PN ---
- General Info Date of Service: 02/09/18 Admission Dx/Problem (Free Text): Admission Diagnosis/Problem Admission Diagnosis/Problem Cellulitis Subjective Update: Feels better, discussed plan of care-->conservative med mgt; begin taper of steroid 02/09. Functional Status: Reports: Pain Controlled, Tolerating Diet, Ambulating, Urinating - Review of Systems General: Denies: Fever, Weakness, Fatigue, Malaise, Chills HEENT: Reports: No Symptoms Pulmonary: Denies: Shortness of Breath Cardiovascular: Denies: Chest Pain, Dyspnea on Exertion, Edema, Lightheadedness Gastrointestinal: Denies: Abdominal Pain, Nausea, Vomiting Genitourinary: Reports: No Symptoms Musculoskeletal: Reports: No Symptoms Skin: Denies: Cyanosis, Mottled Neurological: Denies: Confusion, Difficulty Walking, Weakness, Gait Disturbance Psychiatric: Denies: Depression, Anxiety, Agitation, Hallucinations Systems Review Comment:: No significant overnight or acute issues. She has no complaints. She feels her leg is getting better. She has been afebrile w/ mild leukocytosis. Her CRP is now back to normal. - Patient Data Vitals - Most Recent: Last Vital Signs Temp 37.0 C 02/09/18 07:58 Pulse 64 02/09/18 08:59 Resp 20 02/09/18 07:58 BP 159/99 H 02/09/18 08:59 Pulse Ox 93 L 02/09/18 07:58 Weight - Most Recent: 99.019 kg I&O - Last 24 Hours: Intake & Output 02/08/18 02/09/18 02/09/18 22:59 06:59 14:59 Intake Total 980 1150 Output Total 1150 Balance 980 0 Lab Results Last 24 Hours: Laboratory Results - last 24 hr 02/09/18 02/09/18 02/09/18 Range/Units 06:05 06:05 06:05 WBC 12.90 H (3.98-10.04) K/mm3 RBC 3.84 L (3.98-5.22) M/mm3 Hgb 11.7 (11.2-15.7) gm/L Hct 38.1 (34.1-44.9) % MCV 99.2 H (79.4-94.8) fl MCH 30.5 (25.6-32.2) pg MCHC 30.7 L (32.2-35.5) g/dl RDW Std Deviation 51.3 H (36.4-46.3) fL Plt Count 311 (182-369) K/mm3 MPV 10.5 (9.4-12.3) fl Neut % (Auto) 85.9 H (34.0-71.1) % Lymph % (Auto) 7.1 L (19.3-51.7) % Burt % (Auto) 2.9 L (4.7-12.5) % Eos % (Auto) 0 L (0.7-5.8) Baso % (Auto) 0.1 (0.1-1.2) % Neut # (Auto) 11.08 H (1.56-6.13) K/mm3 Lymph # (Auto) 0.92 L (1.18-3.74) K/mm3 Burt # (Auto) 0.37 H (0.24-0.36) K/mm3 Eos # (Auto) 0.00 L (0.04-0.36) K/mm3 Baso # (Auto) 0.01 (0.01-0.08) K/mm3 Manual Slide Review Abnormal smear Sodium 141 (136-145) mEq/L Potassium 4.5 (3.5-5.1) mEq/L Chloride 108 H (98-107) mEq/L Carbon Dioxide 20 L (21-32) mEq/L Anion Gap 17.5 H (5-15) BUN 38 H (7-18) mg/dL Creatinine 1.2 H (0.55-1.02) mg/dL Est Cr Clr Drug Dosing 35.52 mL/min Estimated GFR (MDRD) 44 (>60) mL/min BUN/Creatinine Ratio 31.7 H (14-18) Glucose 234 H (83-115) mg/dL Lactic Acid 1.9 (0.4-2.0) mmol/L Calcium 10.3 H (8.5-10.1) mg/dL Magnesium 2.1 (1.8-2.4) mg/dl C-Reactive Protein 0.6 (<1.0) mg/dL Bebeto Results Last 24 Hours: Microbiology 02/05/18 20:00 Aerobic Blood Culture - Preliminary Blood - Venous - Lab Draw NO GROWTH AFTER 3 DAYS Anaerobic Blood Culture - Preliminary NO GROWTH AFTER 3 DAYS 02/05/18 19:28 Aerobic Blood Culture - Preliminary Blood - Venous NO GROWTH AFTER 3 DAYS Anaerobic Blood Culture - Preliminary NO GROWTH AFTER 3 DAYS Med Orders - Current: Current Medications Acetaminophen (Tylenol) 650 mg PO Q4H PRN PRN Reason: Pain (Mild 1-3)/fever Albuterol (Proventil Neb Soln) 2.5 mg NEB Q2H PRN PRN Reason: Shortness Of Breath/wheezing Albuterol/Ipratropium (Duoneb 3.0-0.5 Mg/3 Ml) 3 ml NEB Q4H PRN PRN Reason: Shortness Of Breath/wheezing Allopurinol (Zyloprim) 100 mg PO DAILY [facility] Last Admin: 02/09/18 09:02 Dose: 100 mg Bisacodyl (Dulcolax) 5 mg PO DAILY PRN PRN Reason: Constipation Cyclosporine (Modified) (Neoral) 75 mg PO BID [facility] Last Admin: 02/09/18 09:03 Dose: 75 mg Docusate Sodium (Colace) 100 mg PO BID PRN PRN Reason: Constipation Famotidine (Pepcid) 20 mg PO DAILY [facility] Last Admin: 02/09/18 09:01 Dose: 20 mg Gabapentin (Neurontin) 300 mg PO BID [facility] Last Admin: 02/09/18 09:01 Dose: 300 mg Heparin Sodium (Porcine) (Heparin Sodium) 5,000 units SUBCUT Q8H [facility] Last Admin: 02/09/18 03:34 Dose: 5,000 units Hydralazine HCl (Apresoline) 10 mg IVPUSH Q4H PRN PRN Reason: Hypertension Last Admin: 02/09/18 03:33 Dose: 10 mg Hydromorphone HCl (Dilaudid) 0.25 mg IVPUSH Q2H PRN PRN Reason: Pain (severe 7-10) Ceftriaxone Sodium 2 gm/ (Sodium Chloride) 100 mls @ 100 mls/hr IV Q24H [facility] Last Admin: 02/08/18 20:49 Dose: 100 mls/hr Vancomycin HCl 1 gm/Vancomycin HCl 250 mg/ Sodium Chloride 250 mls @ 250 mls/ hr IV Q24H [facility] Last Admin: 02/08/18 21:53 Dose: 250 mls/hr Levothyroxine Sodium (Synthroid) 50 mcg PO ACBREAKFAST [facility] Last Admin: 02/09/18 05:58 Dose: 50 mcg Lidocaine (Lidoderm 5%) 700 mg TOP DAILY [facility] Last Admin: 02/09/18 09:06 Dose: Not Given Magnesium Hydroxide (Milk Of Magnesia) 30 ml PO Q12H PRN PRN Reason: Constipation Metoprolol Tartrate (Lopressor) 25 mg PO Q12HR [facility] Last Admin: 02/09/18 08:59 Dose: 25 mg Miscellaneous Information (Remove Patch) 1 ea TRDERM Q24H [facility] Last Admin: 02/08/18 20:50 Dose: Not Given Mycophenolate Mofetil (Cellcept) 500 mg PO BID [facility] Last Admin: 02/09/18 09:03 Dose: 500 mg Ondansetron HCl (Zofran Odt) 4 mg PO Q4H PRN PRN Reason: nausea, able to take PO Ondansetron HCl (Zofran) 4 mg IV Q4H PRN PRN Reason: Nausea/Vomiting Oxycodone/Acetaminophen (Percocet 325-5 Mg) 1 tab PO Q4H PRN PRN Reason: Pain (moderate 4-6) Last Admin: 02/06/18 06:07 Dose: 1 tab Polyethylene Glycol (Miralax) 17 gm PO DAILY PRN PRN Reason: Constipation Prednisone (Prednisone) 20 mg PO DAILY@1400 KARIN Senna/Docusate Sodium (Senna Plus) 1 tab PO BID PRN PRN Reason: Constipation Simvastatin (Zocor) 20 mg PO BEDTIME [facility] Last Admin: 02/08/18 20:49 Dose: 20 mg Temazepam (Restoril) 7.5 mg PO BEDTIME PRN PRN Reason: Sleep Vancomycin HCl (Pharmacy To Dose - Vancomycin) 0 dose .XX ASDIRECTED PRN PRN Reason: RX TO DOSE MAG Discontinued Medications Ceftriaxone Sodium (Rocephin) 2 gm IVPUSH Q24H [facility] Last Admin: 02/05/18 21:04 Dose: Not Given Ceftriaxone Sodium 1 gm/ (Sodium Chloride) 100 mls @ 200 mls/hr IV ONETIME ONE Stop: 02/05/18 16:00 Last Admin: 02/05/18 15:49 Dose: 200 mls/hr Ceftriaxone Sodium 1 gm/ (Sodium Chloride) 100 mls @ 200 mls/hr IV ONETIME ONE Stop: 02/05/18 21:14 Last Admin: 02/05/18 21:43 Dose: 200 mls/hr Sodium Chloride (Normal Saline) 1,000 mls @ 125 mls/hr IV ASDIRECTED [facility] Stop: 02/06/18 02:46 Last Admin: 02/06/18 00:48 Dose: 125 mls/hr Magnesium Sulfate 2 gm/ Premix 50 mls @ 25 mls/hr IV ONETIME ONE Stop: 02/06/18 13:09 Last Admin: 02/06/18 11:14 Dose: 25 mls/hr Sodium Chloride (Sodium Chloride 0.45%) 1,000 mls @ 100 mls/hr IV ASDIRECTED [facility] Stop: 02/08/18 18:00 Last Admin: 02/08/18 17:06 Dose: 100 mls/hr Methylprednisolone Sodium Succinate (Solu-Medrol) 40 mg IVPUSH Q12H [facility] Stop: 02/09/18 11:00 Last Admin: 02/09/18 09:05 Dose: 40 mg Miscellaneous Information (Remove Patch) 1 ea TRDERM ONETIME ONE Stop: 02/05/18 21:31 Last Admin: 02/05/18 22:05 Dose: Not Given Prednisone (Prednisone) 5 mg PO DAILY [facility] Last Admin: 02/07/18 10:13 Dose: Not Given - Exam General: Alert, Oriented, Cooperative, No Acute Distress HEENT: Pupils Equal, Pupils Reactive, EOMI, Mucous Membr. Moist/[place] Neck: Supple, Trachea Midline Lungs: Clear to Auscultation, Normal Respiratory Effort Cardiovascular: Regular Rate, Regular Rhythm GI/Abdominal Exam: Normal Bowel Sounds, Soft, Non-Tender, No Organomegaly, No Distention, No Abnormal Bruit (Female) Exam: Deferred Back Exam: Normal Inspection, Decreased Range of Motion Extremities: Normal Range of Motion, Non-Tender, No Pedal Edema, Normal Capillary Refill, Increased Warmth, Redness (right lower extremity: improving), Other (less edematous on right lower extremity). No: Normal Inspection (right lower extremity), Leg Pain Peripheral Pulses: 2+: Dorsalis Pedis (L), Dorsalis Pedis (R) Skin: Warm, Dry, Intact Wound/Incisions: Healing Well Neurological: No New Focal Deficit, Normal Gait Psy/Mental Status: Alert, Normal Affect, Normal Mood - Problem List Review Problem List Initiated/Reviewed/Updated: Yes - Plan Plan:: I/P: Acute: Right lower leg cellulitis s/p fall, Improving * She reports her knee "gave out" 1 week ago and she fell down three steps; usually uses walker but at the time was using hand rails * Risk factors: bilateral knee replacements (states she may also need right hip replacement), unsteady gait with walker, h/o peripheral neuropathy * Denies dizziness, LOC, F/C, N/V/D * She thought it was "just a bruise" but then pain, swelling and redness increased * No leukocytosis, Lactic Acid WNL * CRP elevated 4.9 * Blood cultures pending * MRSA by PCR screen pending (no active wound to culture) * ED was asked to call meat cutting block repairer to confirm type of antibiotic she can handle d/t renal transplant: * Recommendation was not documented, but was reportedly 3rd generation Cephalosporin and Vancomycin * Continue Rocephin and Vancomycin--> Doxy vs Levaquin: pharmacy to check possible interaction with her immuno-suppressant agents * PT/OT consult for evaluation of knee weakness/unsteadiness Hyperglycemia * 2/2 Steroids and improper diet * BS in 220s-230s * A1C 6.4-->she is pre-Diabetes * She is should be on ISS or at least Biguanide Chronic: H/o CVA (2010)--> states she has no residual symptoms HTN Hypothyroidism Peripheral neuropathy H/o bilateral knee replacement (L knee 2004, R knee 05/2017) Renal failure s/p renal transplant (2014) * continue at-home immuno-suppressant medications; add IV steroids/stress dose ; hold prednisone * reverse isolation not needed at this time, WBC/Neut WNL Obesity Class II * BMI of 37 * Counseled on LSM * Dietary consult for weight management and proper diet Plan: She is clinically stable Discontinue HECTOR wrap Routine AM labs Heart Healthy Diet CM/SW for discharge planning DVT Prophylaxis: Heparin GI Prophylaxis: Pepcid Encourage to ambulate as tolerated Other orders as indicated above Code Status: Full Code; PCP: Dr. Quigley LOS > 96 hrs due to slow response to treatment. Possible d/c in 1-2 days.
[2018-02-09] MEDS ORDERED: predniSONE 20 MG Tab PO SCH (14:00)
[2018-02-09] MEDS ORDERED: Pneumococcal Polyvalent-23 Vaccine 0.5 ML SDV IM ONE (15:44)
[2018-02-09] MEDS: Insulin Lispro 100 Unit/ML 3 ML KwikPen SUBCUT SCH ×2 (17:23→22:05)
[2018-02-09] MEDS: metFORMIN 500 MG Tab PO SCH (17:27)
[2018-02-09] MEDS: cefTRIAXone 2 GM in Sodium Chloride 0.9% 100 ML IV SCH (22:05)
[2018-02-09] MEDS: Simvastatin 20 MG Tab PO SCH (22:11)
[2018-02-09] MEDS: Vancomycin 1 GM, Vancomycin 250 MG in Sodium Chloride 0.9% 250 ML IV SCH (22:51)
[2018-02-10] MEDS: hydrALAZINE 20 MG/ML SDV IVPUSH PRN (06:04)
[2018-02-10] MEDS: metFORMIN 500 MG Tab PO SCH (06:04)
[2018-02-10] MEDS: Heparin Sodium 5,000 Units/ML Vial SUBCUT SCH ×2 (06:04→10:59)
[2018-02-10] MEDS: Levothyroxine 50 MCG Tab PO SCH (06:04)
[2018-02-10] MEDS ORDERED: LORazepam 0.5 MG Tab PO PRN (06:14)
[2018-02-10] MEDS: Insulin Lispro 100 Unit/ML 3 ML KwikPen SUBCUT SCH ×2 (06:26→10:55)
--- NOTE | 2018-02-10 07:18 | PCM.DCSUM1 ---
Discharge Summary - Hospital Course HPI Initial Comments: Stella is a 72-year-old woman with history of CVA, HTN, hypothyroidism, peripheral neuropathy, and renal failure s/p renal transplant who complains of right leg pain for the past 6 days. Seven days ago, she reports her knee "gave out" and she fell down three steps. The next day, she started having right throbbing lower leg pain, swelling, and redness. The pain is always present, worse with movement and better with a hot or cold pack. Stella denies fever/ chills,chest pain, shortness of breath, pain with breathing, neck/back injury, hip/knee/ankle pain, and alteration in sensation. She does take gabapentin for chronic nerve pain in her feet. Stella reports having had a stroke in ~2010, from which she has fully recovered. She states she was unable to talk or walk after her stroke. According to pt, no cause for the stroke was identified. She denies heart disease, valvular heart disease, peripheral vascular disease, coagulation disorder, or previous blood clots. She denies being a current smoker, and reports smoking about 55 years ago, for a total of about one year. She denies being on hormone replacement therapy. She does not drink alcohol. She takes 81mg ASA every day. Stella had a kidney transplant in 2014 due to bilateral renal failure. She is currently taking Cellcept and prednisone for anti-rejection therapy. Her colorist is Dr. Quigley. She has had her knees replaced bilaterally, with a left knee replacement in 2004 and a right knee replacement in May 2017. Diagnosis: Stroke: No Modified Julio Scale: No Symptoms at All Modified Pratt Scale Score: 0 - Discharge Data Discharge Date: 02/10/18 (ADMIT 02/06/18) Discharge Disposition: Home, Self-Care 01 Condition: Good - Discharge Diagnosis/Problem(s) (1) Cellulitis SNOMED Code(s): 217204798 ICD Code: L03.90 - CELLULITIS, UNSPECIFIED Status: Acute Current Visit: Yes Qualifiers: Site of cellulitis: extremity Site of cellulitis of extremity: lower extremity Laterality: right Qualified Code(s): L03.115 - Cellulitis of right lower limb - Patient Summary/Data Operative Procedure(s) Performed: none Complications: none Consults: Consultations 02/05/18 20:44 OT Evaluation and Treatment [CONS] Routine PT Evaluation and Treatment [CONS] Routine 02/10/18 06:57 Consult to Diabetic Nurse Specialist [CONS] Routine Labs Pending at D/C: none Recommended Follow-up Testing/Procedures: Follow up with PCP in 7-10 days. Planned Operative Procedure(s) after DC: none Hospital Course: I/P: Acute: Right lower leg cellulitis s/p fall, Resolved * She reports her knee "gave out" 1 week ago and she fell down three steps; usually uses walker but at the time was using hand rails * Risk factors: bilateral knee replacements (states she may also need right hip replacement), unsteady gait with walker, h/o peripheral neuropathy * Denies dizziness, LOC, F/C, N/V/D * She thought it was "just a bruise" but then pain, swelling and redness increased * No leukocytosis, Lactic Acid WNL * CRP elevated 4.9 * Blood cultures--> no growth * MRSA by PCR negative (no active wound to culture) * ED was asked to call colorist to confirm type of antibiotic she can handle d/t renal transplant: * Recommendation was not documented, but was reportedly 3rd generation Cephalosporin and Vancomycin * Continue Rocephin and Vancomycin--> Doxy vs Levaquin: pharmacy to check possible interaction with her immuno-suppressant agents * PT/OT consult for evaluation of knee weakness/unsteadiness Hyperglycemia * 2/2 Steroids and improper diet * BS in 220s-230s * A1C 6.4-->she is pre-Diabetes * She is should be on ISS or at least Biguanide Chronic: H/o CVA (2010)--> states she has no residual symptoms HTN Hypothyroidism Peripheral neuropathy H/o bilateral knee replacement (L knee 2004, R knee 05/2017) Renal failure s/p renal transplant (2014) * continue at-home immuno-suppressant medications; add IV steroids/stress dose ; hold prednisone * reverse isolation not needed at this time, WBC/Neut WNL Obesity Class II * BMI of 37 * Counseled on LSM * Dietary consult for weight management and proper diet Plan: She is clinically stable Discontinue HECTOR wrap Routine AM labs Heart Healthy Diet CM/SW for discharge planning DVT Prophylaxis: Heparin GI Prophylaxis: Pepcid Encourage to ambulate as tolerated Other orders as indicated above Code Status: Full Code; PCP: Dr. Quigley LOS > 96 hrs due to slow response to treatment. D/C home today. Sera did well after being admitted for right lower leg cellulitis s/p fall down stairs. She was treated with Rocephin and Vancomycin per colorist recommendation. She was also found to have hyperglycemia while here, most likely 2/2 steroids and improper diet. A1C was checked and is 6.4, making her pre-diabetic. She was given diabetic counseling while here and will be sent home on Glimepiride 4mg BID and metformin 500mg BID. She will also be sent home on Levaquin 500 PO Q daily for completion of cellulitis treatment (pharmacy recommended as it does not interact with her immuno-suppressant agents) .Recommend f/u with PCP in 7-10 days. She will be D/C'd home today. - Patient Instructions Diet: Heart Healthy Diet, Usual Diet as Tolerated, Weight Loss Diet Activity: As Tolerated Driving: Do Not Drive Showering/Bathing: May Shower Notify Provider of: Fever, Increased Pain, Swelling and Redness, Drainage, Nausea and/or Vomiting - Discharge Plan *PRESCRIPTION DRUG MONITORING PROGRAM REVIEWED*: Not Applicable *COPY OF PRESCRIPTION DRUG MONITORING REPORT IN PATIENT BRENDA: Not Applicable Prescriptions/Med Rec: Glimepiride [Amaryl] 2 mg PO BIDMEALS #12 tab Levofloxacin [Levaquin] 500 mg PO DAILY #10 tablet metFORMIN [Glucophage] 500 mg PO BIDMEALS #90 tablet Saccharomyces Boulardii [Florastor] 250 mg PO DAILY #10 cap Home Medications: Home Meds Allopurinol [Zyloprim] 100 mg PO DAILY 02/05/18 [History] Gabapentin [Neurontin] 300 mg PO BID 02/05/18 [History] Levothyroxine [Synthroid] 50 mcg PO ACBREAKFAST 02/05/18 [History] Lidocaine [Lidocaine Pain Relief] 1 each TP DAILY 02/05/18 [History] Metoprolol Tartrate [Lopressor] 25 mg PO Q12HR 02/05/18 [History] Mycophenolate Mofetil [Cellcept] 500 mg PO BID 02/05/18 [History] atorvaSTATin [Lipitor] 20 mg PO BEDTIME 02/05/18 [History] cycloSPORINE [Cyclosporine] 75 mg PO BID 02/05/18 [History] predniSONE [Prednisone] 5 mg PO DAILY 02/05/18 [History] Levofloxacin [Levaquin] 500 mg PO DAILY #10 tablet 02/09/18 [Rx] Saccharomyces Boulardii [Florastor] 250 mg PO DAILY #10 cap 02/09/18 [Rx] metFORMIN [Glucophage] 500 mg PO BIDMEALS #90 tablet 02/09/18 [Rx] Glimepiride [Amaryl] 2 mg PO BIDMEALS #12 tab 02/10/18 [Rx] Patient Handouts: Prediabetes, Hyperglycemia, [id number], Cellulitis, Adult, [id number], Obesity, Adult, [id number], Preventing Unhealthy Weight Gain, Adult Referrals: Liseth Urrutia [Other] - 02/12/18 8:45 am (clinical informatics educator appoiintment. Bring your glucometer with to this appointment.) Rhona Butler MD [Ordering Only Provider] - 02/12/18 9:15 am (Hospital follow-up appointment. Family practice physician.) Eren Quigley MD [Primary Care Provider] - - Discharge Summary/Plan Comment DC Time >30 min.: Yes (45) - General Info Date of Service: 02/10/18 Admission Dx/Problem (Free Text: Admission Diagnosis/Problem Admission Diagnosis/Problem Cellulitis Subjective Update: In to see Stella. Overall she is doing well. She is a bit tearful today and sad , as she is upset that she feels like "all these health issues keeping coming". She was told she does have prediabetes and that she needs to follow up with her PCP in order to tackle this issue. I explained that we recommend diet and exercise and will be sending her home with some medications in the meantime. I reassured her that this is a reversible condition. She states she does not have a PCP in town and would like us to set one up for her. No other concerns from the pt. No new symptoms. No concerns from nursing. Will be D/C home today. Functional Status: Reports: Pain Controlled, Tolerating Diet, Ambulating, Urinating - Review of Systems General: Reports: No Symptoms. Denies: Fever, Chills HEENT: Reports: No Symptoms Pulmonary: Reports: No Symptoms. Denies: Shortness of Breath Cardiovascular: Reports: No Symptoms. Denies: Chest Pain Gastrointestinal: Reports: No Symptoms. Denies: Diarrhea, Nausea, Vomiting Genitourinary: Reports: No Symptoms. Denies: Dysuria, Frequency, Burning, Pain , Urgency Musculoskeletal: Reports: No Symptoms Skin: Reports: No Symptoms Neurological: Reports: No Symptoms Psychiatric: Reports: Other (tearful and sad) - Patient Data Vitals - Most Recent: Last Vital Signs Temp 97.7 F 02/10/18 05:45 Pulse 73 02/10/18 05:45 Resp 24 H 02/10/18 05:45 BP 161/92 H 02/10/18 06:14 Pulse Ox 95 02/10/18 05:45 Weight - Most Recent: 220 lb I&O - Last 24 hours: Intake & Output 02/09/18 02/10/18 02/10/18 22:59 06:59 14:59 Intake Total 420 300 Output Total 700 1100 Balance -280 -800 Lab Results - Last 24 hrs: Laboratory Results - last 24 hr 02/09/18 02/09/18 02/09/18 Range/Units 06:05 16:49 21:25 WBC (3.98-10.04) K/mm3 RBC (3.98-5.22) M/mm3 Hgb (11.2-15.7) gm/L Hct (34.1-44.9) % MCV (79.4-94.8) fl MCH (25.6-32.2) pg MCHC (32.2-35.5) g/dl RDW Std Deviation (36.4-46.3) fL Plt Count (182-369) K/mm3 MPV (9.4-12.3) fl Neut % (Auto) (34.0-71.1) % Lymph % (Auto) (19.3-51.7) % Schleicher % (Auto) (4.7-12.5) % Eos % (Auto) (0.7-5.8) Baso % (Auto) (0.1-1.2) % Neut # (Auto) (1.56-6.13) K/mm3 Lymph # (Auto) (1.18-3.74) K/mm3 Schleicher # (Auto) (0.24-0.36) K/mm3 Eos # (Auto) (0.04-0.36) K/mm3 Baso # (Auto) (0.01-0.08) K/mm3 Manual Slide Review Abnormal smear POC Glucose 168 H 160 H (83-110) mg/dL 02/10/18 02/10/18 Range/Units 06:09 06:35 WBC 12.77 H (3.98-10.04) K/mm3 RBC 3.82 L (3.98-5.22) M/mm3 Hgb 11.8 (11.2-15.7) gm/L Hct 37.6 (34.1-44.9) % MCV 98.4 H (79.4-94.8) fl MCH 30.9 (25.6-32.2) pg MCHC 31.4 L (32.2-35.5) g/dl RDW Std Deviation 51.1 H (36.4-46.3) fL Plt Count 335 (182-369) K/mm3 MPV 10.3 (9.4-12.3) fl Neut % (Auto) 81.0 H (34.0-71.1) % Lymph % (Auto) 8.3 L (19.3-51.7) % Schleicher % (Auto) 6.5 (4.7-12.5) % Eos % (Auto) 0 L (0.7-5.8) Baso % (Auto) 0.2 (0.1-1.2) % Neut # (Auto) 10.34 H (1.56-6.13) K/mm3 Lymph # (Auto) 1.06 L (1.18-3.74) K/mm3 Schleicher # (Auto) 0.83 H (0.24-0.36) K/mm3 Eos # (Auto) 0.00 L (0.04-0.36) K/mm3 Baso # (Auto) 0.03 (0.01-0.08) K/mm3 Manual Slide Review POC Glucose 146 H (83-110) mg/dL NEFTALY Results - Last 24 hrs: Microbiology 02/05/18 20:00 Aerobic Blood Culture - Preliminary Blood - Venous - Lab Draw NO GROWTH AFTER 4 DAYS Anaerobic Blood Culture - Preliminary NO GROWTH AFTER 4 DAYS 02/05/18 19:28 Aerobic Blood Culture - Preliminary Blood - Venous NO GROWTH AFTER 4 DAYS Anaerobic Blood Culture - Preliminary NO GROWTH AFTER 4 DAYS Med Orders - Current: Current Medications Acetaminophen (Tylenol) 650 mg PO Q4H PRN PRN Reason: Pain (Mild 1-3)/fever Albuterol (Proventil Neb Soln) 2.5 mg NEB Q2H PRN PRN Reason: Shortness Of Breath/wheezing Albuterol/Ipratropium (Duoneb 3.0-0.5 Mg/3 Ml) 3 ml NEB Q4H PRN PRN Reason: Shortness Of Breath/wheezing Allopurinol (Zyloprim) 100 mg PO DAILY [facility] Last Admin: 02/09/18 09:02 Dose: 100 mg Bisacodyl (Dulcolax) 5 mg PO DAILY PRN PRN Reason: Constipation Cyclosporine (Modified) (Neoral) 75 mg PO BID [facility] Last Admin: 02/09/18 22:11 Dose: 75 mg Docusate Sodium (Colace) 100 mg PO BID PRN PRN Reason: Constipation Famotidine (Pepcid) 20 mg PO DAILY [facility] Last Admin: 02/09/18 09:01 Dose: 20 mg Gabapentin (Neurontin) 300 mg PO BID [facility] Last Admin: 02/09/18 22:06 Dose: 300 mg Heparin Sodium (Porcine) (Heparin Sodium) 5,000 units SUBCUT Q8H [facility] Last Admin: 02/10/18 06:04 Dose: 5,000 units Hydralazine HCl (Apresoline) 10 mg IVPUSH Q4H PRN PRN Reason: Hypertension Last Admin: 02/10/18 06:04 Dose: 10 mg Hydromorphone HCl (Dilaudid) 0.25 mg IVPUSH Q2H PRN PRN Reason: Pain (severe 7-10) Ceftriaxone Sodium 2 gm/ (Sodium Chloride) 100 mls @ 100 mls/hr IV Q24H [facility] Last Admin: 02/09/18 22:05 Dose: 100 mls/hr Vancomycin HCl 1 gm/Vancomycin HCl 250 mg/ Sodium Chloride 250 mls @ 250 mls/ hr IV Q24H [facility] Last Admin: 02/09/18 22:51 Dose: 250 mls/hr Insulin Human Lispro (Humalog) 0 unit SUBCUT QIDACANDBED [facility]; Protocol Last Admin: 02/10/18 06:26 Dose: Not Given Levothyroxine Sodium (Synthroid) 50 mcg PO ACBREAKFAST [facility] Last Admin: 02/10/18 06:04 Dose: 50 mcg Lidocaine (Lidoderm 5%) 700 mg TOP DAILY [facility] Last Admin: 02/09/18 09:06 Dose: Not Given Lorazepam (Ativan) 0.5 mg PO Q4H PRN PRN Reason: Anxiety Last Admin: 02/10/18 06:24 Dose: 0.5 mg Magnesium Hydroxide (Milk Of Magnesia) 30 ml PO Q12H PRN PRN Reason: Constipation Metformin HCl (Glucophage) 500 mg PO BIDMEALS [facility] Last Admin: 02/10/18 06:04 Dose: 500 mg Metoprolol Tartrate (Lopressor) 25 mg PO Q12HR [facility] Last Admin: 02/09/18 22:06 Dose: 25 mg Miscellaneous Information (Remove Patch) 1 ea TRDERM Q24H [facility] Last Admin: 02/09/18 20:21 Dose: Not Given Mycophenolate Mofetil (Cellcept) 500 mg PO BID [facility] Last Admin: 02/09/18 22:25 Dose: 500 mg Ondansetron HCl (Zofran Odt) 4 mg PO Q4H PRN PRN Reason: nausea, able to take PO Ondansetron HCl (Zofran) 4 mg IV Q4H PRN PRN Reason: Nausea/Vomiting Oxycodone/Acetaminophen (Percocet 325-5 Mg) 1 tab PO Q4H PRN PRN Reason: Pain (moderate 4-6) Last Admin: 02/06/18 06:07 Dose: 1 tab Polyethylene Glycol (Miralax) 17 gm PO DAILY PRN PRN Reason: Constipation Prednisone (Prednisone) 20 mg PO DAILY@1400 [facility] Last Admin: 02/09/18 13:45 Dose: 20 mg Senna/Docusate Sodium (Senna Plus) 1 tab PO BID PRN PRN Reason: Constipation Simvastatin (Zocor) 20 mg PO BEDTIME [facility] Last Admin: 02/09/18 22:11 Dose: 20 mg Temazepam (Restoril) 7.5 mg PO BEDTIME PRN PRN Reason: Sleep Last Admin: 02/09/18 22:26 Dose: 7.5 mg Vancomycin HCl (Pharmacy To Dose - Vancomycin) 0 dose .XX ASDIRECTED PRN PRN Reason: RX TO DOSE MAG Discontinued Medications Ceftriaxone Sodium (Rocephin) 2 gm IVPUSH Q24H [facility] Last Admin: 02/05/18 21:04 Dose: Not Given Ceftriaxone Sodium 1 gm/ (Sodium Chloride) 100 mls @ 200 mls/hr IV ONETIME ONE Stop: 02/05/18 16:00 Last Admin: 02/05/18 15:49 Dose: 200 mls/hr Ceftriaxone Sodium 1 gm/ (Sodium Chloride) 100 mls @ 200 mls/hr IV ONETIME ONE Stop: 02/05/18 21:14 Last Admin: 02/05/18 21:43 Dose: 200 mls/hr Sodium Chloride (Normal Saline) 1,000 mls @ 125 mls/hr IV ASDIRECTED [facility] Stop: 02/06/18 02:46 Last Admin: 02/06/18 00:48 Dose: 125 mls/hr Magnesium Sulfate 2 gm/ Premix 50 mls @ 25 mls/hr IV ONETIME ONE Stop: 02/06/18 13:09 Last Admin: 02/06/18 11:14 Dose: 25 mls/hr Sodium Chloride (Sodium Chloride 0.45%) 1,000 mls @ 100 mls/hr IV ASDIRECTED [facility] Stop: 02/08/18 18:00 Last Admin: 02/08/18 17:06 Dose: 100 mls/hr Methylprednisolone Sodium Succinate (Solu-Medrol) 40 mg IVPUSH Q12H [facility] Stop: 02/09/18 11:00 Last Admin: 02/09/18 09:05 Dose: 40 mg Miscellaneous Information (Remove Patch) 1 ea TRDERM ONETIME ONE Stop: 02/05/18 21:31 Last Admin: 02/05/18 22:05 Dose: Not Given Pneumococcal Polyvalent Vaccine (Pneumovax 23) 0.5 ml IM .ONCE ONE Stop: 02/09/18 15:45 Prednisone (Prednisone) 5 mg PO DAILY [facility] Last Admin: 02/07/18 10:13 Dose: Not Given - Exam Quality Assessment: Reports: DVT Prophylaxis General: Reports: Alert, Oriented, Cooperative, No Acute Distress HEENT: Reports: Pupils Equal, Pupils Reactive, EOMI, Mucous Membr. Moist/[place] Neck: Reports: Supple Lungs: Reports: Clear to Auscultation, Normal Respiratory Effort Cardiovascular: Reports: Regular Rate, Regular Rhythm GI/Abdominal Exam: Normal Bowel Sounds, Soft, Non-Tender, No Organomegaly, No Distention, No Abnormal Bruit, No Mass, Pelvis Stable (Female) Exam: Deferred Rectal (Female) Exam: Deferred Back Exam: Reports: Normal Inspection, Full Range of Motion Extremities: Normal Inspection, Normal Range of Motion, Non-Tender, No Pedal Edema, Normal Capillary Refill Skin: Reports: Warm, Dry, Intact Neurological: Reports: No New Focal Deficit Psy/Mental Status: Reports: Alert, Normal Affect, Normal Mood
[2018-02-10] MEDS: Gabapentin 300 MG Cap PO SCH (10:48)
[2018-02-10] MEDS: Allopurinol 100 MG Tab PO SCH (10:49)
[2018-02-10] MEDS: Famotidine 20 MG Tab PO SCH (10:49)
[2018-02-10] MEDS: Metoprolol Tartrate 25 MG Tab PO SCH (10:50)
[2018-02-10] MEDS: Lidocaine 5% 700 MG Patch TOP SCH (10:51)
[2018-02-10] MEDS: Mycophenolate Mofetil 250 MG Cap PO SCH (10:54)
== END 2018-02-10 14:00 | disposition home or self-care (01) | DRG 603 ==
LOC: JD.ED 10:20 → JD.MS 18:23 → OBSVTOIN 02-06 12:16
PROVIDERS: ADMIT Internal Medicine Cardiovascular Disease; ATTEND Internal Medicine Cardiovascular Disease
PROC: 3E02340 Introduction of Influenza Vaccine into Muscle, Percutaneous Approach (ICD-10-PCS; principal; 2018-02-10)
PROC: 3E0234Z Introduction of Serum, Toxoid and Vaccine into Muscle, Percutaneous Approach (ICD-10-PCS; 2018-02-10)
DX: L03.115 Cellulitis of right lower limb (principal); Z94.0 Kidney transplant status; I10 Essential (primary) hypertension; E03.9 Hypothyroidism, unspecified; G62.9 Polyneuropathy, unspecified; I87.2 Venous insufficiency (chronic) (peripheral); E78.00 Pure hypercholesterolemia, unspecified; T38.0X5A Adverse effect of glucocorticoids and synthetic analogues, initial encounter; R73.9 Hyperglycemia, unspecified; R73.03 Prediabetes; E66.9 Obesity, unspecified; Z68.37 Body mass index [BMI] 37.0-37.9, adult; M79.604 Pain in right leg; L53.9 Erythematous condition, unspecified; Z23 Encounter for immunization; Z87.891 Personal history of nicotine dependence; Z79.899 Other long term (current) drug therapy; Z79.52 Long term (current) use of systemic steroids; Z90.710 Acquired absence of both cervix and uterus; Z96.653 Presence of artificial knee joint, bilateral; Z88.8 Allergy status to other drugs, medicaments and biological substances; Z86.73 Personal history of transient ischemic attack (TIA), and cerebral infarction without residual deficits
CPT/HCPCS: 36415 ×2; 73590; 80048; 80053; 83036; 83605 ×2; 83735; 85007; 85025; 85027; 86140 ×2; 87040; 87641; 93971; 96361; 96365; 96367; 96375 ×2; 97165; 99285; A9270 ×11; G0378 ×2; J0696 ×2; J3370 ×2; J7030 ×2; J7040; J7050; J7515; 80202; 82962; 84439; 84443; 90662; 90732; 97110-GP; 97116-GP; 97162-GP; 99284; J0360; J1644; J1815; J2920; J3475

== ENCOUNTER 2020-05-21 09:22 | Emergency (ER) | payer MEDICARE, BC ==
[2020-05-21] MEDS ORDERED: Hydrochlorothiazide 12.5 MG Cap PO ONE (10:11)
--- NOTE | 2020-05-21 10:17 | EDM.PDOC ---
ED HPI GENERAL MEDICAL PROBLEM - General Chief Complaint: Cardiovascular Problem Stated Complaint: HIGH BLOOD PRESSURE Time Seen by Provider: 05/21/20 10:00 Source of Information: Reports: Patient History Limitations: Reports: No Limitations - History of Present Illness INITIAL COMMENTS - FREE TEXT/NARRATIVE: The patient presents with hypertension. She has a history of hypertension with renal transplant. She sees Dr Geronimo for her kidneys and Dr Kaufman is her doctor. She saw Dr Geronimo on April 27 and he increased her cardura to 6mg from 4mg. She is also on Norvasc 5mg and hydrochlorothiazide 12.5mg daily. Her BP has gone up. It was over 200 systolic at home and 207 systolic here. She has no headache. She says yesterday she had some left arm pain but she feels that is from sleeping on it wrong. She has no chest pain or shortness of breath. She has no fever, chills, cough, congestion, runny nose, abdominal pain, nausea or vomiting. Onset: Gradual Duration: Week(s): Location: Reports: Upper Extremity, Left Quality: Reports: Ache Severity: Mild Improves with: Reports: None Worsens with: Reports: None Associated Symptoms: Reports: No Other Symptoms - Related Data Allergies Allergy/AdvReac Type Severity Reaction Status Date / Time adhesive tape Allergy Rash Verified 05/21/20 09:33 Home Meds: Home Meds Gabapentin [Neurontin] 300 mg PO BID 02/05/18 [History] Levothyroxine [Synthroid] 50 mcg PO ACBREAKFAST 02/05/18 [History] allopurinoL [Zyloprim] 100 mg PO DAILY 02/05/18 [History] atorvaSTATin [Lipitor] 20 mg PO BEDTIME 02/05/18 [History] cycloSPORINE [Cyclosporine] 75 mg PO BID 02/05/18 [History] mycophenolate mofetiL [Cellcept] 500 mg PO BID 02/05/18 [History] predniSONE [Prednisone] 5 mg PO DAILY 02/05/18 [History] metFORMIN [Glucophage] 500 mg PO BIDMEALS #90 tablet 02/09/18 [Rx] Baclofen 20 mg PO BEDTIME 05/21/20 [History] Cinacalcet [Sensipar] 30 mg PO DAILY 05/21/20 [History] Doxazosin [Doxazosin Mesylate] 4 mg PO BEDTIME 05/21/20 [History] Folic Acid 1 mg PO DAILY 05/21/20 [History] Magnesium Oxide 400 mg PO BID 05/21/20 [History] Thiamine [Vitamin B-1] 100 mg PO DAILY 05/21/20 [History] amLODIPine [Norvasc] 5 mg PO DAILY 05/21/20 [History] hydroCHLOROthiazide [Hydrochlorothiazide] 12.5 mg PO DAILY 05/21/20 [History] Past Medical History HEENT History: Reports: Impaired Vision Cardiovascular History: Reports: High Cholesterol, Hypertension Neurological History: Reports: CVA Endocrine/Metabolic History: Reports: Hypothyroidism Dermatologic History: Reports: Cellulitis - Past Surgical History Head Surgeries/Procedures: Reports: None HEENT Surgical History: Reports: Cataract Surgery, Tonsillectomy GI Surgical History: Reports: Appendectomy, Colonoscopy Female Surgical History: Reports: Hysterectomy, Other (See Below) Other Female Surgeries/Procedures: kidney transplant Musculoskeletal Surgical History: Reports: Carpal Tunnel, Knee Replacement Social & Family History - Family History Family Medical History: No Pertinent Family History - Tobacco Use Tobacco Use Status *Q: Never Tobacco User Second Hand Smoke Exposure: No - Caffeine Use Caffeine Use: Reports: Coffee - Recreational Drug Use Recreational Drug Use: No ED ROS GENERAL - Review of Systems Review Of Systems: See Below Constitutional: Reports: No Symptoms HEENT: Reports: No Symptoms Respiratory: Reports: No Symptoms Cardiovascular: Reports: No Symptoms Endocrine: Reports: No Symptoms GI/Abdominal: Reports: No Symptoms : Reports: No Symptoms Musculoskeletal: Reports: Other (Left arm pain yesterday) ED EXAM, GENERAL - Physical Exam Exam: See Below Exam Limited By: No Limitations General Appearance: Alert, No Apparent Distress Ears: Normal External Exam Nose: Normal Inspection Head: Atraumatic, Normocephalic Neck: Normal Inspection Respiratory/Chest: No Respiratory Distress, Lungs Clear, Normal Breath Sounds Cardiovascular: Regular Rate, Rhythm, No Edema, No Murmur GI/Abdominal: Soft, Non-Tender, No Organomegaly, No Mass Extremities: Normal Inspection Neurological: Alert, Oriented, No Motor/Sensory Deficits Course - Vital Signs Last Recorded V/S: Last Vital Signs Temp 97.7 F 05/21/20 09:28 Pulse 82 05/21/20 09:28 Resp 24 H 05/21/20 09:28 BP 207/94 H 05/21/20 09:28 Pulse Ox 97 05/21/20 09:28 - Orders/Labs/Meds Orders: Active Orders 24 hr Category Date Time Status Cardiac Monitoring [RC] . DIRECTED Care 05/21/20 10:10 Active EKG Documentation Completion [RC] STAT Care 05/21/20 10:11 Active Labs: Laboratory Tests 05/21/20 05/21/20 Range/Units 10:22 10:22 WBC 6.39 (3.98-10.04) K/mm3 RBC 3.56 L (3.98-5.22) M/mm3 Hgb 10.7 L (11.2-15.7) gm/dl Hct 35.2 (34.1-44.9) % MCV 98.9 H (79.4-94.8) fl MCH 30.1 (25.6-32.2) pg MCHC 30.4 L (32.2-35.5) g/dl RDW Std Deviation 55.1 H (36.4-46.3) fL Plt Count 183 D (182-369) K/mm3 MPV 9.9 (9.4-12.3) fl Neut % (Auto) 69.5 (34.0-71.1) % Lymph % (Auto) 15.3 L (19.3-51.7) % [place] % (Auto) 11.3 (4.7-12.5) % Eos % (Auto) 2.8 (0.7-5.8) Baso % (Auto) 0.3 (0.1-1.2) % Neut # (Auto) 4.44 (1.56-6.13) K/mm3 Lymph # (Auto) 0.98 L (1.18-3.74) K/mm3 [place] # (Auto) 0.72 H (0.24-0.36) K/mm3 Eos # (Auto) 0.18 (0.04-0.36) K/mm3 Baso # (Auto) 0.02 (0.01-0.08) K/mm3 Sodium 150 H (136-145) mEq/L Potassium 4.7 (3.5-5.1) mEq/L Chloride 110 H (98-107) mEq/L Carbon Dioxide 30 (21-32) mEq/L Anion Gap 14.7 (5-15) BUN 34 H (7-18) mg/dL Creatinine 1.2 H (0.55-1.02) mg/dL Est Cr Clr Drug Dosing 32.99 mL/min Estimated GFR (MDRD) 44 (>60) mL/min BUN/Creatinine Ratio 28.3 H (14-18) Glucose 117 H (83-115) mg/dL Calcium 9.6 (8.5-10.1) mg/dL Total Bilirubin 0.6 (0.2-1.0) mg/dL AST 19 (15-37) U/L ALT 25 (14-59) U/L Alkaline Phosphatase 150 H (46-116) U/L Troponin I < 0.017 (0.00-0.056) ng/mL Total Protein 6.4 (6.4-8.2) g/dl Albumin 3.4 (3.4-5.0) g/dl Globulin 3.0 gm/dL Albumin/Globulin Ratio 1.1 (1-2) TSH 3rd Generation 0.772 (0.358-3.74) uIU/mL Meds: Medications Discontinued Medications Generic Name Dose Route Start Last Admin Trade Name Freq PRN Reason Stop Dose Admin Hydrochlorothiazide 12.5 mg 05/21/20 10:11 05/21/20 10:23 Hydrochlorothiazide PO 05/21/20 10:12 12.5 mg ONETIME ONE Administration - Re-Assessments/Exams Free Text/Narrative Re-Assessment/Exam: 05/21/20 10:17 I have ordered an EKG, hydrochlorothiazide 12.5mg, and labs. 05/21/20 11:29 Her EKG shows a NSR at a rate of 62, prolonged QT interval, no acute changes. Her Hgb is low at 10.7. Her Na is elevated at 150. Her creatinine is elevated at 1.2. Her glucose is 117. Her Alk Phos was elevated at 156. Her troponin is negative. Her TSH is negative. Her BP went up slightly but I do not want to drop her to normal yet. I will have her take a second dose of HCTZ tomorrow and call her doctor tomorrow. Departure - Departure Time of Disposition: 11:35 Disposition: Home, Self-Care 01 Condition: Good Clinical Impression: Hypertension Qualifiers: Hypertension type: essential hypertension Qualified Code(s): I10 - Essential (primary) hypertension Referrals: Angelito Kaufman MD [Primary Care Provider] - Gato Geronimo MD [Ordering Only Provider] - Forms: ED Department Discharge Additional Instructions: Take your medications as prescribed but take an extra dose of hydrochlorothiazide daily until you can get in contact with Dr Geronimo or Dr Kaufman. Please return if you are worse. Sepsis Event Note (ED) - Evaluation Sepsis Screening Result: No Definite Risk - Focused Exam Vital Signs: Vital Signs Temp Pulse Resp BP Pulse Ox 05/21/20 09:28 97.7 F 82 24 H 207/94 H 97 - My Orders Last 24 Hours: My Active Orders 05/21/20 10:10 Cardiac Monitoring [RC] . DIRECTED 05/21/20 10:11 EKG Documentation Completion [RC] STAT - Assessment/Plan Last 24 Hours: My Active Orders 05/21/20 10:10 Cardiac Monitoring [RC] . DIRECTED 05/21/20 10:11 EKG Documentation Completion [RC] STAT
== END 2020-05-21 11:51 | disposition home or self-care (01) ==
LOC: JD.ED 09:22
DX: I10 Essential (primary) hypertension (principal); E78.00 Pure hypercholesterolemia, unspecified; E03.9 Hypothyroidism, unspecified; Z86.73 Personal history of transient ischemic attack (TIA), and cerebral infarction without residual deficits; Z79.899 Other long term (current) drug therapy; Z91.048 Other nonmedicinal substance allergy status
CPT/HCPCS: 36415; 80053; 84443; 84484; 85025; 93005; 99283; A9270

== ENCOUNTER 2020-09-17 18:30 | Emergency (ER) | payer MEDICARE, BC ==
[2020-09-17] MEDS ORDERED: Ondansetron 4 MG/2 ML SDV IVPUSH ONE (19:33)
[2020-09-17] MEDS ORDERED: HYDROmorphone 0.5 MG/0.5 ML Syringe IVPUSH STA (19:33)
--- NOTE | 2020-09-17 19:38 | EDM.PDOC ---
ED HPI GENERAL MEDICAL PROBLEM - General Chief Complaint: Back Pain or Injury Stated Complaint: RT HIP PAIN Time Seen by Provider: 09/17/20 19:17 Source of Information: Reports: Patient, Family () History Limitations: Reports: No Limitations - History of Present Illness INITIAL COMMENTS - FREE TEXT/NARRATIVE: Mrs. Pedroza is a very pleasant 75-year-old woman who now presents the ED stating that she has been experiencing progressively worsening right hip pain for the past 4 weeks, however, when I asked her to show me where she was talking about, she actually indicates the superior aspect of her right iliac crest, not her hip at all. She states that the patient is there all the time, but made worse if she is upright or if she ambulates. She denies any other symptoms, such as fever, nausea, vomiting, constipation, diarrhea, or urinary symptoms. The patient states that she took some Tylenol today around 16:00, but has not taken anything else at any other time for this pain. The patient states that she had similar symptoms about 2 years ago, and was found to have lumbar radiculopathy. She subsequently underwent a lumbar laminectomy. Here in the ED, the patient's initial BP is found to be modestly elevated 166/81, otherwise, she is hemodynamically stable, afebrile, saturating 97% on room air. She appears to be quite comfortable while supine on a gurney. Other than her right side pain, the patient denies having a recent fever, chills, sore throat, ear pain, nasal or sinus congestion, cough, dyspnea, chest pain, palpitations, nausea, vomiting, constipation, diarrhea, abdominal pain, urinary symptoms, recent weight gain or weight loss, recent bloody bowel movements or black bowel movements, recent joint aches, headaches, or rashes. I reviewed the PMHx/PSHx/SocHx, which was reviewed with the patient by the RN. The patient's PCP is Dr. Angelito Kaufman. Her Band Tumbler is Dr. Gato Geronimo. 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: Acetaminophen Right Hip Pain Score (Numeric/FACES): 10 - Related Data Allergies Allergy/AdvReac Type Severity Reaction Status Date / Time adhesive tape Allergy Rash Verified 09/17/20 19:02 Home Meds: Home Meds Gabapentin [Neurontin] 300 mg PO BID 02/05/18 [History] Levothyroxine [Synthroid] 50 mcg PO ACBREAKFAST 02/05/18 [History] allopurinoL [Zyloprim] 100 mg PO DAILY 02/05/18 [History] atorvaSTATin [Lipitor] 20 mg PO BEDTIME 02/05/18 [History] cycloSPORINE [Cyclosporine] 75 mg PO BID 02/05/18 [History] mycophenolate mofetiL [Cellcept] 500 mg PO BID 02/05/18 [History] predniSONE [Prednisone] 5 mg PO DAILY 02/05/18 [History] metFORMIN [Glucophage] 500 mg PO BIDMEALS #90 tablet 02/09/18 [Rx] Baclofen 20 mg PO BEDTIME 05/21/20 [History] Cinacalcet [Sensipar] 30 mg PO DAILY 05/21/20 [History] Folic Acid 1 mg PO DAILY 05/21/20 [History] Magnesium Oxide 400 mg PO BID 05/21/20 [History] Thiamine [Vitamin B-1] 100 mg PO DAILY 05/21/20 [History] amLODIPine [Norvasc] 5 mg PO DAILY 05/21/20 [History] hydroCHLOROthiazide [Hydrochlorothiazide] 12.5 mg PO DAILY 05/21/20 [History] Aspirin 325 mg PO DAILY 09/17/20 [History] Cyclobenzaprine [Flexeril] 5 mg PO DAILY 09/17/20 [History] Metoprolol Succinate [Toprol Xl] 25 mg PO DAILY 09/17/20 [History] Sertraline [Zoloft] 50 mg PO DAILY 09/17/20 [History] Terazosin [Hytrin] 5 mg PO BEDTIME 09/17/20 [History] Past Medical History HEENT History: Reports: Impaired Vision Cardiovascular History: Reports: High Cholesterol, Hypertension Neurological History: Reports: CVA Endocrine/Metabolic History: Reports: Hypothyroidism Dermatologic History: Reports: Cellulitis - Past Surgical History HEENT Surgical History: Reports: Cataract Surgery, Tonsillectomy GI Surgical History: Reports: Appendectomy, Colonoscopy Female Surgical History: Reports: Hysterectomy, Other (See Below) Other Female Surgeries/Procedures: kidney transplant Musculoskeletal Surgical History: Reports: Carpal Tunnel, Knee Replacement Social & Family History - Family History Family Medical History: No Pertinent Family History - Tobacco Use Tobacco Use Status *Q: Never Tobacco User - Caffeine Use Caffeine Use: Reports: Coffee, Soda - Recreational Drug Use Recreational Drug Use: No ED ROS GENERAL - Review of Systems Review Of Systems: Comprehensive ROS is negative, except as noted in HPI. ED EXAM, GI/ABD - Physical Exam Exam: See Below Exam Limited By: No Limitations General Appearance: Alert, WD/WN, No Apparent Distress Eyes: Bilateral: Normal Appearance, EOMI Ears: Normal External Exam, Hearing Grossly Normal Nose: Normal Inspection Throat/Mouth: Normal Inspection, Normal Lips, Normal Voice, No Airway Compromise Head: Atraumatic, Normocephalic Neck: Normal Inspection, Full Range of Motion Respiratory/Chest: No Respiratory Distress, Lungs Clear, Normal Breath Sounds, No Accessory Muscle Use Cardiovascular: Normal Peripheral Pulses, Regular Rate, Rhythm, No Gallop, No JVD, No Murmur, No Rub GI/Abdominal Exam: Normal Bowel Sounds, Soft, No Organomegaly, No Distention, No Abnormal Bruit, No Mass, Tender (Reproducible, to the superior aspect of the right iliac crest on the far right side of the abdomen. Completely nontender elsewhere, with no Rovsing sign.) Back Exam: Normal Inspection, Full Range of Motion. No: CVA Tenderness (L), CVA Tenderness (R) Extremities: Normal Inspection, Normal Range of Motion, Normal Capillary Refill Neurological: Alert, Oriented, Normal Cognition, No Motor/Sensory Deficits Psychiatric: Normal Affect Skin Exam: Warm, Dry, Intact, Normal Color, No Rash Course - Vital Signs Last Recorded V/S: Last Vital Signs Temp 35.9 C L 09/17/20 18:54 Pulse 64 09/17/20 18:54 Resp 20 09/17/20 18:54 BP 166/81 H 09/17/20 18:54 Pulse Ox 97 09/17/20 18:54 - Orders/Labs/Meds Orders: Active Orders 24 hr Category Date Time Status Abdomen Pelvis w Cont [CT] Stat Exams 09/17/20 19:32 Taken Sodium Chloride 0.9% [Normal Saline] 1,000 ml Med 09/17/20 19:45 Active IV ASDIRECTED Medication Orders Sodium Chloride (Normal Saline) 1,000 mls @ 150 mls/hr IV ASDIRECTED KARIN Last Admin: 09/17/20 19:48 Dose: 150 mls/hr Documented by: LISA Labs: Laboratory Tests 09/17/20 09/17/20 09/17/20 Range/Units 19:43 19:43 20:00 WBC 7.40 (3.98-10.04) K/mm3 RBC 3.96 L (3.98-5.22) M/mm3 Hgb 11.9 (11.2-15.7) gm/dl Hct 38.1 (34.1-44.9) % MCV 96.2 H (79.4-94.8) fl MCH 30.1 (25.6-32.2) pg MCHC 31.2 L (32.2-35.5) g/dl RDW Std Deviation 51.1 H (36.4-46.3) fL Plt Count 181 L (182-369) K/mm3 MPV 9.6 (9.4-12.3) fl Neutrophils % (Manual) 80 H (40-60) % Band Neutrophils % 2 (0-10) % Lymphocytes % (Manual) 15 L (20-40) % Atypical Lymphs % 0 % Monocytes % (Manual) 3 (2-10) % Eosinophils % (Manual) 0 L (0.7-5.8) % Basophils % (Manual) 0 L (0.1-1.2) Platelet Estimate Adequate Anisocytosis 1+ slight RBC Morph Comment Not Reportable Sodium 145 (136-145) mEq/L Potassium 3.8 (3.5-5.1) mEq/L Chloride 105 (98-107) mEq/L Carbon Dioxide 27 (21-32) mEq/L Anion Gap 16.8 H (5-15) BUN 31 H (7-18) mg/dL Creatinine 1.2 H (0.55-1.02) mg/dL Est Cr Clr Drug Dosing 32.48 mL/min Estimated GFR (MDRD) 44 (>60) mL/min BUN/Creatinine Ratio 25.8 H (14-18) Glucose 139 H (83-115) mg/dL Calcium 9.1 (8.5-10.1) mg/dL Magnesium 1.6 L (1.8-2.4) mg/dl Total Bilirubin 0.6 (0.2-1.0) mg/dL AST 23 (15-37) U/L ALT 32 (14-59) U/L Alkaline Phosphatase 158 H (46-116) U/L Total Protein 7.2 (6.4-8.2) g/dl Albumin 4.1 (3.4-5.0) g/dl Globulin 3.1 gm/dL Albumin/Globulin Ratio 1.3 (1-2) Urine Color Yellow (Yellow) Urine Appearance Clear (Clear) Urine pH 7.0 (5.0-8.0) Ur Specific [place] 1.020 (1.005-1.030) Urine Protein Negative (Negative) Urine Glucose (UA) Negative (Negative) Urine Ketones Negative (Negative) Urine Occult Blood Negative (Negative) Urine Nitrite Negative (Negative) Urine Bilirubin Negative (Negative) Urine Urobilinogen 0.2 (0.2-1.0) Ur Leukocyte Esterase Negative (Negative) Urine RBC 0-5 (0-5) /hpf Urine WBC 5-10 H (0-5) /hpf Ur Squamous Epith Cells 0-5 (0-5) /hpf Urine Bacteria Many H (FEW) /hpf Urine Mucus Not seen (FEW) /hpf Meds: Medications Generic Name Dose Route Start Last Admin Trade Name Freq PRN Reason Stop Dose Admin Sodium Chloride 1,000 mls @ 150 mls/hr 09/17/20 19:45 09/17/20 19:48 Normal Saline IV 150 mls/hr ASDIRECTED KARIN Administration Discontinued Medications Generic Name Dose Route Start Last Admin Trade Name Freq PRN Reason Stop Dose Admin Diatrizoate Meglum/Diatrizoate Sod 90 ml 09/17/20 20:57 09/17/20 21:19 Diatrizoate Meglumine/Diatrizoate Sodium 37% 120 Ml Bottle PO 09/17/20 20:58 90 ml ONETIME ONE Administration Hydromorphone HCl 0.25 mg 09/17/20 19:33 09/17/20 19:47 Hydromorphone 0.5 Mg/0.5 Ml Syringe IVPUSH 09/17/20 19:34 0.25 mg ONETIME STA Administration Magnesium Sulfate 2 gm in 50 mls @ 25 mls/hr 09/17/20 20:33 09/17/20 21:12 Magnesium Sulfate In Water 2 Gm/50 Ml IV 09/17/20 22:32 25 mls/hr ONETIME ONE Administration Iopamidol 100 ml 09/17/20 20:57 09/17/20 21:19 Iopamidol 612 Mg/Ml 100 Ml Bottle IVPUSH 09/17/20 20:58 100 ml ONETIME ONE Administration Ondansetron HCl 4 mg 09/17/20 19:33 09/17/20 19:45 Ondansetron 4 Mg/2 Ml Sdv IVPUSH 09/17/20 19:34 4 mg ONETIME ONE Administration Sodium Chloride 10 ml 09/17/20 20:57 09/17/20 21:19 Sodium Chloride 0.9% 10 Ml Syringe FLUSH 09/17/20 20:58 10 ml ONETIME ONE Administration - Re-Assessments/Exams Free Text/Narrative Re-Assessment/Exam: 09/17/20 19:34 As above, the patient has been experiencing progressively worsening for-right lower abdominal pain, not hip pain, as was reported at triage, over the past 4 weeks. No other symptoms, such as fever, nausea, vomiting, constipation, diarrhea, or urinary symptoms. On examination, the pain is reproducible with palpation to the superior iliac crest on the right, but with no tenderness elsewhere, and pain not induced with palpation elsewhere on the abdomen. No CVA tenderness. Her right hip is completely nontender, with painless ROM. She states that she had similar pain about 2 years ago, that turned out to be due to lumbar radiculopathy, relieved following a lumbar laminectomy. An underlying cancer would also be on the differential. I have ordered a work-up that includes several blood tests, a urinalysis by quick-catheter, and a CT of the abdomen and pelvis with oral and IV contrast. In the meantime, the patient will be given a very small amount of IV Dilaudid, along with some IV Zofran and IV fluid. 09/17/20 20:34 The patient's CBC is remarkable for thrombocytopenia of 181,000, and is otherwise unremarkable. Her CMP is remarkable for an anion gap slightly elevated at 16.8, with a bicarbonate normal at 27. Her BUN/Cr are slightly elevated at 31/1.2, and she has mild hyperglycemia of 139. Her alkaline phosphatase is mildly elevated at 158, with the remainder of her CMP being unremarkable. Her magnesium level is low at 1.6. Her urinalysis is remarkable for occult blood negative with 0-5 RBCs, leukocyte esterase negative with 5-10 WBCs, nitrate negative with many bacteria, and 0-5 squamous epithelial cells. Based on the above, I have ordered a 2 g Mg-rider. Treatment for a UTI is not indicated. 09/17/20 22:18 CT of the abdomen and pelvis with oral and IV contrast is read by [facility] as: 1. No sign of acute intra-abdominal pathology. 2. Findings of chronic calcific pancreatitis. No acute pancreatitis. 3. Findings relating to chronic renal failure with a right renal transplant. 09/17/20 22:22 Test results discussed with the patient and her . As above, the patient appears to have chronic pancreatitis, however, her pain is nowhere near her pancreas, therefore does not appear to be related. I suspect that her pain is due to lumbar radiculopathy, like it was in 2019, therefore I am recommending that she follow-up with Dr. Kaufman, who could order an MRI of her lumbar spine to see if there is any problem. In the meantime, the patient can take [id number] Tylenol ibuprofen; because she had a kidney transplant, she has been told not to take ibuprofen, although in fact it would be okay if she were to take low doses. Departure - Departure Time of Disposition: 22:23 Disposition: Home, Self-Care 01 Condition: Good Clinical Impression: Lumbar radiculopathy, Hypomagnesemia - Discharge Information *PRESCRIPTION DRUG MONITORING PROGRAM REVIEWED*: Not Applicable *COPY OF PRESCRIPTION DRUG MONITORING REPORT IN PATIENT BRENDA: Not Applicable Instructions: Radicular Pain Referrals: Angelito Kaufman MD [Primary Care Provider] - Gato Geronimo MD [Ordering Only Provider] - Forms: ED Department Discharge Additional Instructions: You were seen in the emergency room for progressively worsening pain to the far right side of your lower abdomen. Work-up in the ER included several blood tests, a urinalysis, and a CT of your abdomen and pelvis with oral and IV contrast. Your magnesium level was found to be somewhat depressed at 1.6, therefore you were given IV magnesium replacement in the ER. The remainder of your work-up was unremarkable, and does not explain the cause of your symptoms. Based on your history, physical exam, and ER tests, your pain is most likely caused by an inflamed or irritated nerve coming from your lower back, a condition known as lumbar radiculopathy. We recommend that you follow-up with your PCP, Dr. Angelito Kaufman, for further evaluation that will likely include an MRI of your back. In the meantime, you may take [id number] Tylenol as needed for discomfort. If any other problems, please do not hesitate to return to the ER. Sepsis Event Note (ED) - Evaluation Sepsis Screening Result: No Definite Risk - Focused Exam Vital Signs: Vital Signs Temp Pulse Resp BP Pulse Ox 09/17/20 18:54 35.9 C L 64 20 166/81 H 97 - My Orders Last 24 Hours: My Active Orders 09/17/20 19:32 Abdomen Pelvis w Cont [CT] Stat 09/17/20 19:45 Sodium Chloride 0.9% [Normal Saline] 1,000 ml IV ASDIRECTED - Assessment/Plan Last 24 Hours: My Active Orders 09/17/20 19:32 Abdomen Pelvis w Cont [CT] Stat 09/17/20 19:45 Sodium Chloride 0.9% [Normal Saline] 1,000 ml IV ASDIRECTED
[2020-09-17] MEDS ORDERED: Sodium Chloride 0.9% 1,000 ML IV SCH (19:45)
[2020-09-17] MEDS ORDERED: Magnesium Sulfate/Water 2 GM/50 ML BAG IV ONE (20:33)
[2020-09-17] MEDS ORDERED: Iopamidol 612 MG/ML 100 ML Bottle IVPUSH ONE (20:57)
[2020-09-17] MEDS ORDERED: Sodium Chloride 0.9% 10 ML Syringe FLUSH ONE (20:57)
[2020-09-17] MEDS ORDERED: Diatrizoate Meglumine/Diatrizoate Sodium 37% 120 ML Bottle PO ONE (20:57)
--- NOTE | 2020-09-18 07:11 | CT ---
CT abdomen and pelvis Technique: Multiple axial sections were obtained from above the dome of the diaphragm inferiorly through the pubic symphysis. Intravenous contrast and oral contrast has been given. Delayed images were also obtained through the bladder. Reconstructed coronal and sagittal images were obtained. Comparison: No prior CT abdomen or pelvis study is available. Findings: Visualized lung bases show nothing acute. Liver contains no focal parenchymal abnormality. Mild fatty infiltration is noted within the liver. Gallbladder contains no calcified gallstones. Spleen size is normal. Adrenal glands show no nodule. Both [place] kidneys are severely atrophied. Small cysts are seen within both kidneys. Diffuse calcifications are seen within the pancreas. Pancreatic duct is slightly dilated. Findings are felt compatible with chronic calcific pancreatitis. Abdominal aorta shows diffuse atherosclerotic change without aneurysm. No retroperitoneal adenopathy or mesenteric abnormalities are seen. Transplant kidney is noted within the right pelvis. Diverticulosis is noted within the descending and sigmoid regions without inflammatory change or diverticulitis. Surgical clips are seen around the right transplant kidney. Transplant kidney appears normal in enhancement. Appendix is not definitely visualized. Bone window settings were obtained which show diffuse disc space narrowing within the spine with multiple levels of vacuum disc phenomena. Previous lumbar spine surgery is noted. Joint space narrowing is noted within both hips. No acute osseous abnormality is appreciated. Small fat-containing left inguinal hernia is noted. Delayed images show contrast excretion from the right transplant kidney into the bladder. Impression: 1. Atrophied kidneys showing cysts. Functioning transplant kidney within the right pelvis with delayed images showing excretion of contrast into the bladder. 2. Numerous diverticuli within the descending and sigmoid colon without findings of diverticulitis. 3. Findings of chronic pancreatitis as described above. 4. Small partial fat-containing left inguinal hernia is noted. 5. Other incidental findings as noted above. Diagnostic code #1 I agree with preliminary report from [facility] finalized on 09/17/20, 10:40 PM CDT, code 1 MTDD
== END 2020-09-17 22:53 | disposition home or self-care (01) ==
LOC: JD.ED 18:30
DX: M54.16 Radiculopathy, lumbar region (principal); E83.42 Hypomagnesemia; E78.00 Pure hypercholesterolemia, unspecified; I10 Essential (primary) hypertension; E03.9 Hypothyroidism, unspecified; Z79.899 Other long term (current) drug therapy; Z91.048 Other nonmedicinal substance allergy status
CPT/HCPCS: 36415; 74177; 80053; 81001; 83735; 85007; 85027; 96365; 96366; 96375; 99284; J1170; J2405; J3475; J7030; Q9963; Q9967; 99283

== ENCOUNTER 2021-04-01 22:56 | Emergency (ER) | payer MEDICARE, BC ==
[2021-04-01] MEDS ORDERED: Albuterol/Ipratropium 3.0-0.5 MG/3 ML Neb Soln NEB ONE (23:13)
--- NOTE | 2021-04-01 23:14 | EDM.PDOC ---
ED HPI GENERAL MEDICAL PROBLEM - General Chief Complaint: General Stated Complaint: [facility] Time Seen by Provider: 04/01/21 23:14 Source of Information: Reports: Patient History Limitations: Reports: Respiratory Distress - History of Present Illness INITIAL COMMENTS - FREE TEXT/NARRATIVE: Patient is a 75-year-old female with a past medical history of COPD, hyperte nsion, kidney transplant presenting with chief complaint of shortness of breath. History limited from patient due to respiratory distress and hypoxia. According to , patient had not been feeling well for the past few days. She had significant drop in her appetite but he did continue to drink fluids. Respiratory status seem to worsen the night when she became significantly more short of breath. When EMS arrived, she was saturating in the 60%. Patient does not use home oxygen but does use a CPAP machine at night. During transportation, patient was kept on 15 L nonrebreather with only improvement to the high 70s. Otherwise, no interventions performed prior to arrival. - Related Data Allergies Allergy/AdvReac Type Severity Reaction Status Date / Time adhesive tape Allergy Rash Verified 04/01/21 23:13 Home Meds: Home Meds Gabapentin [Neurontin] 300 mg PO BID 02/05/18 [History] Levothyroxine [Synthroid] 50 mcg PO ACBREAKFAST 02/05/18 [History] allopurinoL [Zyloprim] 100 mg PO DAILY 02/05/18 [History] atorvaSTATin [Lipitor] 20 mg PO BEDTIME 02/05/18 [History] cycloSPORINE [Cyclosporine] 75 mg PO BID 02/05/18 [History] mycophenolate mofetiL [Cellcept] 500 mg PO BID 02/05/18 [History] predniSONE [Prednisone] 5 mg PO DAILY 02/05/18 [History] metFORMIN [Glucophage] 500 mg PO BIDMEALS #90 tablet 02/09/18 [Rx] Cinacalcet [Sensipar] 30 mg PO DAILY 05/21/20 [History] Folic Acid 1 mg PO DAILY 05/21/20 [History] Magnesium Oxide 400 mg PO BID 05/21/20 [History] Thiamine [Vitamin B-1] 100 mg PO DAILY 05/21/20 [History] amLODIPine [Norvasc] 5 mg PO DAILY 05/21/20 [History] hydroCHLOROthiazide [Hydrochlorothiazide] 12.5 mg PO DAILY 05/21/20 [History] Aspirin 325 mg PO DAILY 05/09/21 [History] Metoprolol Succinate [Toprol Xl] 25 mg PO DAILY 09/17/20 [History] Sertraline [Zoloft] 50 mg PO DAILY 09/17/20 [History] Terazosin [Hytrin] 5 mg PO BEDTIME 09/17/20 [History] Past Medical History HEENT History: Reports: Impaired Vision Cardiovascular History: Reports: High Cholesterol, Hypertension Neurological History: Reports: CVA Endocrine/Metabolic History: Reports: Hypothyroidism Dermatologic History: Reports: Cellulitis - Past Surgical History Head Surgeries/Procedures: Reports: None HEENT Surgical History: Reports: Cataract Surgery, Tonsillectomy GI Surgical History: Reports: Appendectomy, Colonoscopy Female Surgical History: Reports: Hysterectomy, Other (See Below) Other Female Surgeries/Procedures: kidney transplant Musculoskeletal Surgical History: Reports: Carpal Tunnel, Knee Replacement Social & Family History - Family History Family Medical History: No Pertinent Family History - Caffeine Use Caffeine Use: Reports: Coffee, Soda ED ROS GENERAL - Review of Systems Review Of Systems: Unable To Obtain Reason Not Obtained: Respiratory distress ED EXAM, GENERAL - Physical Exam Exam: See Below Free Text/Narrative:: I have reviewed the triage vital signs Const: Chronically ill-appearing, well developed, appears stated age Eyes: Pupils Equal and reactive to light bilaterally, no conjunctival injection HENT: No signs of trauma or swelling, Neck supple without meningismus CV: Regular Rate Rhythm, Warm, well-perfused extremities RESP: Mild tachypnea with no wheezing present. GI: soft, non-tender, non-distended, no masses MSK: No gross deformities appreciated Skin: Warm, dry. 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 Sensation and motor function of extremities grossly intact. Psych: Appropriate mood and affect. #1 Interpretation EKG Date: 04/02/21 Time: 00:02 Rhythm: NSR Rate (Beats/Min): 86 [place]: Normal P-Wave: Present (Premature atrial complexes) QRS: Normal ST-T: Normal QT: Normal Comparison: Change From Previous EKG EKG Interpretation Comments: EKG evidence of left ventricular hypertrophy. Abnormal EKG Course - Vital Signs Last Recorded V/S: Last Vital Signs Temp 38.3 C H 04/01/21 22:56 Pulse 86 04/01/21 22:56 Resp 32 H 04/01/21 22:56 BP 119/58 L 04/01/21 22:56 Pulse Ox 88 L 04/02/21 00:11 - Orders/Labs/Meds Labs: Laboratory Tests 04/01/21 04/01/21 04/01/21 Range/Units 23:17 23:25 23:25 WBC 5.55 (3.98-10.04) K/mm3 RBC 3.85 L (3.98-5.22) M/mm3 Hgb 11.8 (11.2-15.7) gm/dl Hct 36.8 (34.1-44.9) % MCV 95.6 H (79.4-94.8) fl MCH 30.6 (25.6-32.2) pg MCHC 32.1 L (32.2-35.5) g/dl RDW Std Deviation 50.6 H (36.4-46.3) fL Plt Count 183 (182-369) K/mm3 MPV 10.2 (9.4-12.3) fl Neut % (Auto) 83.6 H (34.0-71.1) % Lymph % (Auto) 7.4 L (19.3-51.7) % Crawford % (Auto) 8.3 (4.7-12.5) % Eos % (Auto) 0 L (0.7-5.8) Baso % (Auto) 0.2 (0.1-1.2) % Neut # (Auto) 4.64 (1.56-6.13) K/mm3 Lymph # (Auto) 0.41 L (1.18-3.74) K/mm3 Crawford # (Auto) 0.46 H (0.24-0.36) K/mm3 Eos # (Auto) 0.00 L (0.04-0.36) K/mm3 Baso # (Auto) 0.01 (0.01-0.08) K/mm3 PT 10.7 (9.7-12.0) SECONDS INR 0.96 D-Dimer, Quantitative 0.80 H (0.19-0.50) mg/L VBG pH (7.30-7.40) VBG pCO2 (41-51) mmHg VBG pO2 (40-80) mmHG VBG HCO3 (22-26) meq/L VBG O2 Saturation VBG Base Excess (-4.0-2.0) O2 Delivery Device Oxygen Flow Rate Sodium (136-145) mEq/L Potassium (3.5-5.1) mEq/L Chloride (98-107) mEq/L Carbon Dioxide (21-32) mEq/L Anion Gap (5-15) BUN (7-18) mg/dL Creatinine (0.55-1.02) mg/dL Est Cr Clr Drug Dosing mL/min Estimated GFR (MDRD) (>60) mL/min BUN/Creatinine Ratio (14-18) Glucose (70-99) mg/dL Lactic Acid (0.4-2.0) mmol/L Calcium (8.5-10.1) mg/dL Total Bilirubin (0.2-1.0) mg/dL AST (15-37) U/L ALT (14-59) U/L Alkaline Phosphatase (46-116) U/L Troponin I (0.00-0.056) ng/mL C-Reactive Protein (<1.0) mg/dL NT-Pro-B Natriuret Pep (0-450) pg/mL Total Protein (6.4-8.2) g/dl Albumin (3.4-5.0) g/dl Globulin gm/dL Albumin/Globulin Ratio (1-2) SARS-CoV-2 RNA (TAVARES) Positive H (NEGATIVE) 04/01/21 04/01/21 04/01/21 Range/Units 23:25 23:25 23:25 WBC (3.98-10.04) K/mm3 RBC (3.98-5.22) M/mm3 Hgb (11.2-15.7) gm/dl Hct (34.1-44.9) % MCV (79.4-94.8) fl MCH (25.6-32.2) pg MCHC (32.2-35.5) g/dl RDW Std Deviation (36.4-46.3) fL Plt Count (182-369) K/mm3 MPV (9.4-12.3) fl Neut % (Auto) (34.0-71.1) % Lymph % (Auto) (19.3-51.7) % Crawford % (Auto) (4.7-12.5) % Eos % (Auto) (0.7-5.8) Baso % (Auto) (0.1-1.2) % Neut # (Auto) (1.56-6.13) K/mm3 Lymph # (Auto) (1.18-3.74) K/mm3 Crawford # (Auto) (0.24-0.36) K/mm3 Eos # (Auto) (0.04-0.36) K/mm3 Baso # (Auto) (0.01-0.08) K/mm3 PT (9.7-12.0) SECONDS INR D-Dimer, Quantitative (0.19-0.50) mg/L VBG pH (7.30-7.40) VBG pCO2 (41-51) mmHg VBG pO2 (40-80) mmHG VBG HCO3 (22-26) meq/L VBG O2 Saturation VBG Base Excess (-4.0-2.0) O2 Delivery Device Oxygen Flow Rate Sodium 139 (136-145) mEq/L Potassium 4.3 (3.5-5.1) mEq/L Chloride 100 (98-107) mEq/L Carbon Dioxide 24 (21-32) mEq/L Anion Gap 19.3 H (5-15) BUN 77 H D (7-18) mg/dL Creatinine 2.4 H D (0.55-1.02) mg/dL Est Cr Clr Drug Dosing 16.24 mL/min Estimated GFR (MDRD) 20 (>60) mL/min BUN/Creatinine Ratio 32.1 H (14-18) Glucose 121 H (70-99) mg/dL Lactic Acid 1.8 (0.4-2.0) mmol/L Calcium 8.2 L (8.5-10.1) mg/dL Total Bilirubin 1.6 H (0.2-1.0) mg/dL AST 74 H (15-37) U/L ALT 37 (14-59) U/L Alkaline Phosphatase 108 (46-116) U/L Troponin I 0.027 (0.00-0.056) ng/mL C-Reactive Protein 14.0 H* (<1.0) mg/dL NT-Pro-B Natriuret Pep 2308 H (0-450) pg/mL Total Protein 6.0 L (6.4-8.2) g/dl Albumin 3.2 L (3.4-5.0) g/dl Globulin 2.8 gm/dL Albumin/Globulin Ratio 1.1 (1-2) SARS-CoV-2 RNA (TAVARES) (NEGATIVE) 04/01/21 04/02/21 04/02/21 Range/Units 23:40 05:15 05:15 WBC (3.98-10.04) K/mm3 RBC (3.98-5.22) M/mm3 Hgb (11.2-15.7) gm/dl Hct (34.1-44.9) % MCV (79.4-94.8) fl MCH (25.6-32.2) pg MCHC (32.2-35.5) g/dl RDW Std Deviation (36.4-46.3) fL Plt Count (182-369) K/mm3 MPV (9.4-12.3) fl Neut % (Auto) (34.0-71.1) % Lymph % (Auto) (19.3-51.7) % Crawford % (Auto) (4.7-12.5) % Eos % (Auto) (0.7-5.8) Baso % (Auto) (0.1-1.2) % Neut # (Auto) (1.56-6.13) K/mm3 Lymph # (Auto) (1.18-3.74) K/mm3 Crawford # (Auto) (0.24-0.36) K/mm3 Eos # (Auto) (0.04-0.36) K/mm3 Baso # (Auto) (0.01-0.08) K/mm3 PT (9.7-12.0) SECONDS INR D-Dimer, Quantitative (0.19-0.50) mg/L VBG pH 7.37 (7.30-7.40) VBG pCO2 37.5 L (41-51) mmHg VBG pO2 31.0 L (40-80) mmHG VBG HCO3 21.2 L (22-26) meq/L VBG O2 Saturation 44.5 VBG Base Excess -3.1 (-4.0-2.0) O2 Delivery Device Bipap 14/8 Oxygen Flow Rate 15.0 Sodium 141 (136-145) mEq/L Potassium 4.0 (3.5-5.1) mEq/L Chloride 105 (98-107) mEq/L Carbon Dioxide 21 (21-32) mEq/L Anion Gap 19.0 H (5-15) BUN 76 H (7-18) mg/dL Creatinine 2.3 H (0.55-1.02) mg/dL Est Cr Clr Drug Dosing 16.94 mL/min Estimated GFR (MDRD) 21 (>60) mL/min BUN/Creatinine Ratio 33.0 H (14-18) Glucose 286 H (70-99) mg/dL Lactic Acid 1.1 (0.4-2.0) mmol/L Calcium 7.3 L (8.5-10.1) mg/dL Total Bilirubin (0.2-1.0) mg/dL AST (15-37) U/L ALT (14-59) U/L Alkaline Phosphatase (46-116) U/L Troponin I (0.00-0.056) ng/mL C-Reactive Protein (<1.0) mg/dL NT-Pro-B Natriuret Pep (0-450) pg/mL Total Protein (6.4-8.2) g/dl Albumin (3.4-5.0) g/dl Globulin gm/dL Albumin/Globulin Ratio (1-2) SARS-CoV-2 RNA (TAVARES) (NEGATIVE) Meds: Medications Discontinued Medications Generic Name Dose Route Start Last Admin Trade Name Freq PRN Reason Stop Dose Admin Albuterol/Ipratropium 3 ml 04/01/21 23:13 04/02/21 00:11 Albuterol/Ipratropium 3.0-0.5 Mg/3 Ml Neb Soln NEB 04/01/21 23:14 3 ml ONETIME ONE Administration Dexamethasone 6 mg 04/02/21 00:03 04/02/21 00:53 Dexamethasone 4 Mg/Ml 5 Ml Mdv IV 04/02/21 00:04 Not Given ONETIME ONE Dexamethasone 6 mg 04/02/21 00:13 04/02/21 00:51 Dexamethasone 10 Mg/Ml Sdv IVPUSH 04/02/21 00:14 6 mg ONETIME ONE Administration Remdesivir 200 mg/ Sodium 250 mls @ 250 mls/hr 04/02/21 00:03 04/02/21 00:52 Chloride IV 04/02/21 00:04 250 mls/hr ONETIME ONE Administration Dextrose/Sodium Chloride 1,000 mls @ 100 mls/hr 04/02/21 01:30 04/02/21 06:10 Dextrose 5%-Normal Saline IV 0 mls/hr ASDIRECTED KARIN Infusion Sodium Chloride 1,000 mls @ 500 mls/hr 04/02/21 05:22 04/02/21 06:10 Normal Saline IV 04/02/21 07:21 500 mls/hr ONETIME ONE Administration Departure - Departure Time of Disposition: 07:24 Disposition: DC/[facility]fer to [facility] 02 Clinical Impression: COVID-19, Acute renal failure, Hypoxia - Discharge Information Referrals: Angelito Kaufman MD [Primary Care Provider] - Forms: ED Department Discharge Critical Care Note - Critical Care Note Total Time (mins): 90 Comments: Critical Care Procedure Note Total critical care time: Approximately 90 minutes Due to a high probability of clinically significant, life threatening deterioration, the patient required my highest level of preparedness to intervene emergently and I personally spent this critical care time directly and personally managing the patient. This critical care time included obtaining a history; examining the patient; pulse oximetry; ordering and review of studies; arranging urgent treatment with development of a management plan; evaluation of patient's response to treatment; frequent reassessment; and, discussions with other providers. This critical care time was performed to assess and manage the high probability of imminent, life-threatening deterioration that could result in multi-organ failure. It was exclusive of separately billable procedures and treating other patients and teaching time. Sepsis Event Note (ED) - Evaluation Sepsis Screening Result: No Definite Risk - Assessment/Plan Assessment:: Patient is a 75-year-old female presenting with shortness of breath. Severely hypoxic on arrival but did improve when switched from nonrebreather to BiPAP machine. She did have episodes of hypotension while in the emergency room. In reviewing her physical exam and laboratory studies, it is highly likely that patient has diffuse volume depletion. Therefore, she was given IV fluids which she responded to. In addition, she was also given remdesivir and dexamethasone. [facility] Patient stabilized on BiPAP. Patient did have episodes of hypotension which was fluid responsive. Patient was continued with IV fluids as she had still not had any urine output in the emergency room. Patient be transported via ground ambulance in stable condition.
[2021-04-02] MEDS ORDERED: Dexamethasone 4 MG/ML 5 ML MDV IV ONE (00:03)
[2021-04-02] MEDS ORDERED: REMDESIVIR 200 MG in Sodium Chloride 0.9% 250 ML IV ONE (00:03)
[2021-04-02] MEDS ORDERED: Dexamethasone 10 MG/ML SDV IVPUSH ONE (00:13)
[2021-04-02] MEDS ORDERED: Dextrose 5%-0.9% NaCl 1,000 ML IV SCH (01:30)
[2021-04-02] MEDS ORDERED: Sodium Chloride 0.9% 1,000 ML IV ONE (05:22)
--- NOTE | 2021-04-02 07:16 | CR ---
Chest: Frontal view of the chest was obtained. Comparison: No prior chest imaging is available. Patchy increased density is seen throughout both sides of the chest. Heart size is within normal limits. Tortuous thoracic aorta is seen. Degenerative change is noted within both shoulders. Scattered disc space narrowing is seen within the spine. Impression: 1. Patchy increased density within both sides of the chest. Difficult to exclude areas of pneumonia. Please rule out COVID etiology. 2. Other chronic findings as noted above. Diagnostic code #3
== END 2021-04-02 08:40 ==
LOC: JD.ED 22:56
DX: U07.1 COVID-19 (principal); R09.02 Hypoxemia; N17.9 Acute kidney failure, unspecified; E78.00 Pure hypercholesterolemia, unspecified; I10 Essential (primary) hypertension; E03.9 Hypothyroidism, unspecified; R94.31 Abnormal electrocardiogram [ECG] [EKG]; Z91.048 Other nonmedicinal substance allergy status; Z79.82 Long term (current) use of aspirin; Z79.899 Other long term (current) drug therapy
CPT/HCPCS: 36415; 71045; 80048; 80053; 82803; 83605; 83880; 84484; 85025; 85379; 85610; 86140; 87040; 93005; 94640; 94660; 96365; 96375; 99285; J1100; J7030; J7042; J7050; U0002; 93010; 99291; 99292; J7620-GY